=== PATIENT | male | born 1945 | race Caucasian/White ===

== ENCOUNTER 2018-01-13 13:58 | Outpatient (RCR) | payer OTHER, SELFPAY ==
[2018-01-13 14:40] VITALS: BP 123/52; PULSE 79; RESP 16; TEMP 36.5; BMI 33.2
--- NOTE | 2018-01-13 17:23 | PCM.WC.HP ---
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: without senior care use Code(s): E11.9 - Type 2 diabetes mellitus without complications (4) Hypertension Status: Chronic Current Visit: Yes Qualifiers: Hypertension type: essential hypertension Qualified Code(s): I10 - Essential (primary) hypertension Code(s): I10 - Essential (primary) hypertension (5) Atrial fibrillation Status: Chronic Current Visit: Yes Qualifiers: Atrial fibrillation type: chronic Qualified Code(s): I48.2 - Chronic atrial fibrillation Code(s): I48.91 - Unspecified atrial fibrillation (6) Chronic anticoagulation Status: Chronic Current Visit: Yes Code(s): Z79.01 - [facility] (current) use of anticoagulants History of Present Illness Date of Service: 01/13/18 Chief Complaint: nonhealing wound to left gray due to trauma/hematoma History of Wound: Enrique is a 72 yo male who is referred for treatment at the wound healing center by Dr. Comer for a nonhealing wound of his left gray due to trauma with resultant hematoma. Enrique injured his leg on December 23, 2017 when a piece of wood dropped and struck his lower leg and he subsequently developed a hematoma due to his chronic anticoagulation with coumadin for A. fib. The skin over the hematoma sloughed off after he put hand elementary math tutor over it and used a heating pad over it and subsequently the clot evacuated itself and he was left with an open wound. Since that time he was applying neosporin and gauze or using wet to dry dressings to the wound. He denies significant drainage, pain or erythema. INR on 01/02/18 was 3.1 Past Medical History Past Medical History: Chronic Problems Traumatic open wound of left lower leg (Chronic) Hyperlipidemia (Chronic) Diabetes mellitus type 2, controlled (Chronic) Hypertension (Chronic) Atrial fibrillation (Chronic) Chronic anticoagulation (Chronic) Surgical History: - - carpal tunnel release b/l, ethmoidectomy, right forearm tendon repair Allergies/Adverse Reactions: Allergies No Known Allergies Allergy (Verified 01/13/18 15:00) Home Medications: Ambulatory Orders Medication Instructions Recorded Acetaminophen [Tylenol Extra 1,000 mg PO DAILY 01/13/18 Strength] Diltiazem HCl [Diltiazem 24Hr ER] 360 mg PO DAILY 01/13/18 Ezetimibe [Zetia] 10 mg PO DAILY 01/13/18 Glimepiride [Amaryl] 2 mg PO DAILY 01/13/18 Ibuprofen [Motrin] 800 mg PO DAILY 01/13/18 Losartan Potassium [Cozaar] 100 mg PO DAILY 01/13/18 Metformin HCl 1,000 mg PO BID 01/13/18 Rosuvastatin Calcium [Crestor] 40 mg PO DAILY 01/13/18 Sitagliptin Phosphate [Januvia] 100 mg PO DAILY 01/13/18 Warfarin Sodium 3 mg PO DAILY 01/13/18 Warfarin Sodium [Coumadin] 1.5 mg PO DAILY 01/13/18 - Family History Maternal Heart Disease, Hypertension Paternal Diabetes, High Cholesterol, Heart Disease, Hypertension Sibling Hypertension Lives: Spouse/ Significant Other Smoking Status: Never smoker Tobacco Use: Non-smoker Alcohol: Occasional Drugs: None Review of Systems Constitutional: Denies: Chills, Fever, Weight Change Eyes: Denies: Pain, Vision Change HEENT: Denies: Difficulty Hearing, Difficulty Swallowing, Sinus Congestion Cardiovascular: Denies: Chest Pain, Palpitations Respiratory: Denies: Cough, Shortness of Breath Gastrointestinal: Denies: Diarrhea, Nausea, Vomiting Genitourinary: Denies: Dysuria, Hematuria Musculoskeletal: Reports: Joint Pain Skin: Reports: Wounds Endocrine: Denies: Heat/ Cold Intolerance, Polydipsia, Polyuria Hematologic/ Lymphatic: Denies: Easy Bruising, Easy Bleeding - Physical Exam Vital Signs Temp Pulse Resp BP 97.7 F L 79 16 123/52 H 01/13/18 14:40 01/13/18 14:40 01/13/18 14:40 01/13/18 14:40 General: Alert, Oriented x3, Cooperative, No apparent distress HEENT: Atraumatic, Normocephalic Oral: Moist Mucosa Lungs: Clear to auscultation Cardiovascular: Irregular Rate Abdomen: Soft, Non Tender, Obese Extremities: Edema Skin: Ulcer/ Wound Wound Measurements and Assessment WC - Nurse 1 - General Ulcer Measurement Start: 01/13/18 14:34 Freq: Status: Active Protocol: Activity Type Activity Date Activity User E-Sign Co-Sign Detail Recorded Client Recorded Date Recorded By Document 01/13/18 14:40 [facility] [id number] 01/13/18 14:57 [facility] 01/13/18 14:40 Wound Center Nurse 1 [Ulcer Assessment] #1- LEFT MEDIAL LE -Combined with other wound No -Current Size (cm) - Length 5.8 -Current Size (cm) - Width 4.6 -Current Size (cm) - Depth 0.3 -Total Square Cm 26.68 -Date of Last Picture (Recall this 01/13/18 field) -Photo Taken Yes -Epithelialization None Present -Tunneling No -Undermining/Tunneling No -Circular Undermining No -Exudate Amt Medium (34-66%) -Exudate Type Serosanguineous -Wound Margin Distinct, Outline Attached -Granulation Amt Medium (34-66%) -Granulation Quality Red -Slough/Fibrin Yes -Necrosis Amt Small (1-33%) -Necrotic Tissue Type Adherent Slough -Structure Exposed Fat Layer Exposed -Texture (Yessy-wound Skin Appearance) Scarring -Moisture (Yessy-wound Skin Appearance Assessed ) -Color (Yessy-wound Skin Appearance) Erythema -Temperature (Yessy-wound Skin No Abnormality Appearance) (Pt Warm) -Tenderness on Palpation (Yessy-wound No Skin Appearance) -Ulcer Cleansing Wound Cleanser -Foul Odor after Cleansing No -Anesthetic Used 4% Lidocaine Solution [Edema Assessment] -Lower Limb Edema Present Yes WC - Nurse 2 - General Ulcer CM Notes Start: 01/13/18 14:34 Freq: Status: Active Protocol: Activity Type Activity Date Activity User E-Sign Co-Sign Detail Recorded Client Recorded Date Recorded By Document 01/13/18 15:18 [id number] 01/13/18 15:47 01/13/18 15:18 Wound Center Nurse 2 [Procedure/Treatment] #2 LEFT GRAY -Time 15:44 -Correct Patient Yes -Correct Side, Site, Position Yes -Correct Procedure Yes -Procedure Performed Yes -Type of Procedure Debridement -Clinical Debridement Subcutaneous -Post Debridement Size (cm) - Length 0.7 -Post Debridement Size (cm) - Width 0.6 -Post Debridement Size (cm) - Depth 0.4 -Total Square Cm 0.42 -Wound/Ulcer Outcome Not Healed -Ulcer Cleansing Rinsed/ Irrigated with Saline -Foul Odor after Cleansing No -Bioengineered Tissue No -Topical Lidocaine (%) 5 -Bleeding Controlled with Pressure -Treatment Response Procedure Tolerated Well #1- LEFT MEDIAL LE -Time 15:18 -Correct Patient Yes -Correct Side, Site, Position Yes -Correct Procedure Yes -Procedure Performed Yes -Type of Procedure Debridement -Clinical Debridement Subcutaneous -Post Debridement Size (cm) - Length 5.7 -Post Debridement Size (cm) - Width 4.5 -Post Debridement Size (cm) - Depth 0.3 -Total Square Cm 25.65 -Wound/Ulcer Outcome Not Healed -Ulcer Cleansing Rinsed/ Irrigated with Saline -Foul Odor after Cleansing No -Bioengineered Tissue No -Topical Lidocaine (%) 5 -Bleeding Controlled with Pressure -Other CIRCULAR UNDERMINING 0.3 CM -Treatment Response Procedure Tolerated Well [See Physician Procedure note for Specifics] Pain Scale: 0-10 Numeric [Pain] -Is Patient Pain Free? Yes Psych/Mental Status: Normal Affect, Appropriate Debridement Note Post-Debridement Measurements/Treatment WC - Nurse 2 - General Ulcer CM Notes Start: 01/13/18 14:34 Freq: Status: Active Protocol: Activity Type Activity Date Activity User E-Sign Co-Sign Detail Recorded Client Recorded Date Recorded By Document 01/13/18 15:18 [id number] 01/13/18 15:47 01/13/18 15:18 Wound Center Nurse 2 #2 LEFT GRAY -Time 15:44 -Correct Patient Yes -Correct Side, Site, Position Yes -Correct Procedure Yes -Procedure Performed Yes -Type of Procedure Debridement -Clinical Debridement Subcutaneous -Post Debridement Size (cm) - Length 0.7 -Post Debridement Size (cm) - Width 0.6 -Post Debridement Size (cm) - Depth 0.4 -Total Square Cm 0.42 -Wound/Ulcer Outcome Not Healed -Ulcer Cleansing Rinsed/ Irrigated with Saline -Foul Odor after Cleansing No -Bioengineered Tissue No -Topical Lidocaine (%) 5 -Bleeding Controlled with Pressure -Treatment Response Procedure Tolerated Well #1- LEFT MEDIAL LE -Time 15:18 -Correct Patient Yes -Correct Side, Site, Position Yes -Correct Procedure Yes -Procedure Performed Yes -Type of Procedure Debridement -Clinical Debridement Subcutaneous -Post Debridement Size (cm) - Length 5.7 -Post Debridement Size (cm) - Width 4.5 -Post Debridement Size (cm) - Depth 0.3 -Total Square Cm 25.65 -Wound/Ulcer Outcome Not Healed -Ulcer Cleansing Rinsed/ Irrigated with Saline -Foul Odor after Cleansing No -Bioengineered Tissue No -Topical Lidocaine (%) 5 -Bleeding Controlled with Pressure -Other CIRCULAR UNDERMINING 0.3 CM -Treatment Response Procedure Tolerated Well Pain Scale: 0-10 Numeric Is Patient Pain Free? Yes Wound debrided: left medial LE Laterality: Left Type of Debridement: Excisional debridement Anesthesia Used: 4% Lidocaine Solution Depth: Down to and including healthy tissue, in the subcutaneous layer Percentage of wound debrided: 100 Instrument Used: 5mm curette Tissue Removed: yellow slough, devitalized tissue Severity: Fat Layer Exposed Amount of bleeding with debridement: Mild Bleeding Controlled with: Compression and gauze Patient tolerated procedure well - Additional Wound Wound debrided: left gray Laterality: Left Type of Debridement: Excisional debridement Anesthesia Used: 4% Lidocaine Solution Depth: Down to and including healthy tissue, in the subcutaneous layer Percentage of wound debrided: 100 Instrument Used: 5mm curette Tissue Removed: yellow slough, devitalized tissue Severity: Fat Layer Exposed Amount of bleeding with debridement: Mild Bleeding Controlled with: Compression and gauze Patient tolerated procedure: Patient tolerated procedure well Assessment/Plan Active Problems Traumatic open wound of left lower leg (Chronic) Hyperlipidemia (Chronic) Diabetes mellitus type 2, controlled (Chronic) Hypertension (Chronic) Atrial fibrillation (Chronic) Chronic anticoagulation (Chronic) Assessment: nonhealing wounds to left gray due to trauma Plan: Enrique's wounds were evaluated and debrided today. Will have him use Aquacel Ag as a primary dressing with adaptic and gauze. Will have him use tubigrips for compression. If there is not significant improvement in the next 2 weeks would obtain vascular testing to assess for compromised vascular system. Puraply was applied for to be used on his wounds to facilitate healing due to the depth and slough and bioburden present in the wound. He ultimately may also benefit from treatment with an Apligraf if his healing is stalled. Encouraged tight glucose control. Elevation of his legs when possible. Increased protein intake to promote healing. F/U in 1 week.
--- NOTE | 2018-01-13 17:27 | HP.PCM_ITS ---
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 penitentiary use Code(s): E11.9 - Type 2 diabetes mellitus without complications (4) Hypertension Status: Chronic Current Visit: Yes Qualifiers: Hypertension type: essential hypertension Qualified Code(s): I10 - Essential (primary) hypertension Code(s): I10 - Essential (primary) hypertension (5) Atrial fibrillation Status: Chronic Current Visit: Yes Qualifiers: Atrial fibrillation type: chronic Qualified Code(s): I48.2 - Chronic atrial fibrillation Code(s): I48.91 - Unspecified atrial fibrillation (6) Chronic anticoagulation Status: Chronic Current Visit: Yes Code(s): 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 Comer for a nonhealing wound of his left gray due to trauma with resultant hematoma. Enrique injured his leg on December 23, 2017 when a piece of wood dropped and struck his lower leg and he subsequently developed a hematoma due to his chronic anticoagulation with coumadin for A. fib. The skin over the hematoma sloughed off after he put hand routing equipment tender over it and used a heating pad over it and subsequently the clot evacuated itself and he was left with an open wound. Since that time he was applying neosporin and gauze or using wet to dry dressings to the wound. He denies significant drainage, pain or erythema. INR on 01/02/18 was 3.1 Past Medical History Past Medical History: Chronic Problems Traumatic open wound of left lower leg (Chronic) Hyperlipidemia (Chronic) Diabetes mellitus type 2, controlled (Chronic) Hypertension (Chronic) Atrial fibrillation (Chronic) Chronic anticoagulation (Chronic) Surgical History: - - carpal tunnel release b/l, ethmoidectomy, right forearm tendon repair Allergies/Adverse Reactions: Allergies No Known Allergies Allergy (Verified 01/13/18 15:00) Home Medications: Ambulatory Orders Medication Instructions Recorded Acetaminophen [Tylenol Extra 1,000 mg PO DAILY 01/13/18 Strength] Diltiazem HCl [Diltiazem 24Hr ER] 360 mg PO DAILY 01/13/18 Ezetimibe [Zetia] 10 mg PO DAILY 01/13/18 Glimepiride [Amaryl] 2 mg PO DAILY 01/13/18 Ibuprofen [Motrin] 800 mg PO DAILY 01/13/18 Losartan Potassium [Cozaar] 100 mg PO DAILY 01/13/18 Metformin HCl 1,000 mg PO BID 01/13/18 Rosuvastatin Calcium [Crestor] 40 mg PO DAILY 01/13/18 Sitagliptin Phosphate [Januvia] 100 mg PO DAILY 01/13/18 Warfarin Sodium 3 mg PO DAILY 01/13/18 Warfarin Sodium [Coumadin] 1.5 mg PO DAILY 01/13/18 - Family History Maternal Heart Disease, Hypertension Paternal Diabetes, High Cholesterol, Heart Disease, Hypertension Sibling Hypertension Lives: Spouse/ Significant Other Smoking Status: Never smoker Tobacco Use: Non-smoker Alcohol: Occasional Drugs: None Review of Systems Constitutional: Denies: Chills, Fever, Weight Change Eyes: Denies: Pain, Vision Change HEENT: Denies: Difficulty Hearing, Difficulty Swallowing, Sinus Congestion Cardiovascular: Denies: Chest Pain, Palpitations Respiratory: Denies: Cough, Shortness of Breath Gastrointestinal: Denies: Diarrhea, Nausea, Vomiting Genitourinary: Denies: Dysuria, Hematuria Musculoskeletal: Reports: Joint Pain Skin: Reports: Wounds Endocrine: Denies: Heat/ Cold Intolerance, Polydipsia, Polyuria Hematologic/ Lymphatic: Denies: Easy Bruising, Easy Bleeding - Physical Exam Vital Signs Temp Pulse Resp BP 97.7 F L 79 16 123/52 H 01/13/18 14:40 01/13/18 14:40 01/13/18 14:40 01/13/18 14:40 General: Alert, Oriented x3, Cooperative, No apparent distress HEENT: Atraumatic, Normocephalic Oral: Moist Mucosa Lungs: Clear to auscultation Cardiovascular: Irregular Rate Abdomen: Soft, Non Tender, Obese Extremities: Edema Skin: Ulcer/ Wound Wound Measurements and Assessment WC - Nurse 1 - General Ulcer Measurement Start: 01/13/18 14:34 Freq: Status: Active Protocol: Activity Type Activity Date Activity User E-Sign Co-Sign Detail Recorded Client Recorded Date Recorded By Document 01/13/18 14:40 [facility] [id number] 01/13/18 14:57 [facility] 01/13/18 14:40 Wound Center Nurse 1 [Ulcer Assessment] #1- LEFT MEDIAL LE -Combined with other wound No -Current Size (cm) - Length 5.8 -Current Size (cm) - Width 4.6 -Current Size (cm) - Depth 0.3 -Total Square Cm 26.68 -Date of Last Picture (Recall this 01/13/18 field) -Photo Taken Yes -Epithelialization None Present -Tunneling No -Undermining/Tunneling No -Circular Undermining No -Exudate Amt Medium (34-66%) -Exudate Type Serosanguineous -Wound Margin Distinct, Outline Attached -Granulation Amt Medium (34-66%) -Granulation Quality Red -Slough/Fibrin Yes -Necrosis Amt Small (1-33%) -Necrotic Tissue Type Adherent Slough -Structure Exposed Fat Layer Exposed -Texture (Yessy-wound Skin Appearance) Scarring -Moisture (Yessy-wound Skin Appearance Assessed ) -Color (Yessy-wound Skin Appearance) Erythema -Temperature (Yessy-wound Skin No Abnormality Appearance) (Pt Warm) -Tenderness on Palpation (Yessy-wound No Skin Appearance) -Ulcer Cleansing Wound Cleanser -Foul Odor after Cleansing No -Anesthetic Used 4% Lidocaine Solution [Edema Assessment] -Lower Limb Edema Present Yes WC - Nurse 2 - General Ulcer CM Notes Start: 01/13/18 14:34 Freq: Status: Active Protocol: Activity Type Activity Date Activity User E-Sign Co-Sign Detail Recorded Client Recorded Date Recorded By Document 01/13/18 15:18 [id number] 01/13/18 15:47 01/13/18 15:18 Wound Center Nurse 2 [Procedure/Treatment] #2 LEFT GRAY -Time 15:44 -Correct Patient Yes -Correct Side, Site, Position Yes -Correct Procedure Yes -Procedure Performed Yes -Type of Procedure Debridement -Clinical Debridement Subcutaneous -Post Debridement Size (cm) - Length 0.7 -Post Debridement Size (cm) - Width 0.6 -Post Debridement Size (cm) - Depth 0.4 -Total Square Cm 0.42 -Wound/Ulcer Outcome Not Healed -Ulcer Cleansing Rinsed/ Irrigated with Saline -Foul Odor after Cleansing No -Bioengineered Tissue No -Topical Lidocaine (%) 5 -Bleeding Controlled with Pressure -Treatment Response Procedure Tolerated Well #1- LEFT MEDIAL LE -Time 15:18 -Correct Patient Yes -Correct Side, Site, Position Yes -Correct Procedure Yes -Procedure Performed Yes -Type of Procedure Debridement -Clinical Debridement Subcutaneous -Post Debridement Size (cm) - Length 5.7 -Post Debridement Size (cm) - Width 4.5 -Post Debridement Size (cm) - Depth 0.3 -Total Square Cm 25.65 -Wound/Ulcer Outcome Not Healed -Ulcer Cleansing Rinsed/ Irrigated with Saline -Foul Odor after Cleansing No -Bioengineered Tissue No -Topical Lidocaine (%) 5 -Bleeding Controlled with Pressure -Other CIRCULAR UNDERMINING 0.3 CM -Treatment Response Procedure Tolerated Well [See Physician Procedure note for Specifics] Pain Scale: 0-10 Numeric [Pain] -Is Patient Pain Free? Yes Psych/Mental Status: Normal Affect, Appropriate Debridement Note Post-Debridement Measurements/Treatment WC - Nurse 2 - General Ulcer CM Notes Start: 01/13/18 14:34 Freq: Status: Active Protocol: Activity Type Activity Date Activity User E-Sign Co-Sign Detail Recorded Client Recorded Date Recorded By Document 01/13/18 15:18 [id number] 01/13/18 15:47 01/13/18 15:18 Wound Center Nurse 2 #2 LEFT GRAY -Time 15:44 -Correct Patient Yes -Correct Side, Site, Position Yes -Correct Procedure Yes -Procedure Performed Yes -Type of Procedure Debridement -Clinical Debridement Subcutaneous -Post Debridement Size (cm) - Length 0.7 -Post Debridement Size (cm) - Width 0.6 -Post Debridement Size (cm) - Depth 0.4 -Total Square Cm 0.42 -Wound/Ulcer Outcome Not Healed -Ulcer Cleansing Rinsed/ Irrigated with Saline -Foul Odor after Cleansing No -Bioengineered Tissue No -Topical Lidocaine (%) 5 -Bleeding Controlled with Pressure -Treatment Response Procedure Tolerated Well #1- LEFT MEDIAL LE -Time 15:18 -Correct Patient Yes -Correct Side, Site, Position Yes -Correct Procedure Yes -Procedure Performed Yes -Type of Procedure Debridement -Clinical Debridement Subcutaneous -Post Debridement Size (cm) - Length 5.7 -Post Debridement Size (cm) - Width 4.5 -Post Debridement Size (cm) - Depth 0.3 -Total Square Cm 25.65 -Wound/Ulcer Outcome Not Healed -Ulcer Cleansing Rinsed/ Irrigated with Saline -Foul Odor after Cleansing No -Bioengineered Tissue No -Topical Lidocaine (%) 5 -Bleeding Controlled with Pressure -Other CIRCULAR UNDERMINING 0.3 CM -Treatment Response Procedure Tolerated Well Pain Scale: 0-10 Numeric Is Patient Pain Free? Yes Wound debrided: left medial LE Laterality: Left Type of Debridement: Excisional debridement Anesthesia Used: 4% Lidocaine Solution Depth: Down to and including healthy tissue, in the subcutaneous layer Percentage of wound debrided: 100 Instrument Used: 5mm curette Tissue Removed: yellow slough, devitalized tissue Severity: Fat Layer Exposed Amount of bleeding with debridement: Mild Bleeding Controlled with: Compression and gauze Patient tolerated procedure well - Additional Wound Wound debrided: left gray Laterality: Left Type of Debridement: Excisional debridement Anesthesia Used: 4% Lidocaine Solution Depth: Down to and including healthy tissue, in the subcutaneous layer Percentage of wound debrided: 100 Instrument Used: 5mm curette Tissue Removed: yellow slough, devitalized tissue Severity: Fat Layer Exposed Amount of bleeding with debridement: Mild Bleeding Controlled with: Compression and gauze Patient tolerated procedure: Patient tolerated procedure well Assessment/Plan Active Problems Traumatic open wound of left lower leg (Chronic) Hyperlipidemia (Chronic) Diabetes mellitus type 2, controlled (Chronic) Hypertension (Chronic) Atrial fibrillation (Chronic) Chronic anticoagulation (Chronic) Assessment: nonhealing wounds to left gray due to trauma
== END 2018-01-13 23:59 ==
LOC: WC 13:58
PROVIDERS: PCP Family Medicine; Visit Provider Family Medicine
DX: S80.12XA Contusion of left lower leg, initial encounter (principal); W22.8XXA Striking against or struck by other objects, initial encounter; I10 Essential (primary) hypertension; I48.2 Chronic atrial fibrillation; Z79.01 Long term (current) use of anticoagulants; E11.9 Type 2 diabetes mellitus without complications; E78.5 Hyperlipidemia, unspecified; Z79.899 Other long term (current) drug therapy
CPT/HCPCS: 11042; 11045; 99203; G0463

== ENCOUNTER 2018-02-10 13:30 | Outpatient (RCR) | payer OTHER, SELFPAY ==
[2018-01-14 02:00] VITALS: BP 123/52; PULSE 79; RESP 16; TEMP 36.5
[2018-01-20 14:08] VITALS: BP 124/68; PULSE 79; RESP 18; TEMP 36.6
--- NOTE | 2018-01-20 17:57 | PCM.WC.PN ---
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 Comer for a nonhealing wound of his left gray due to trauma with resultant hematoma. Enrique injured his leg on December 23, 2017 when a piece of wood dropped and struck his lower leg and he subsequently developed a hematoma due to his chronic anticoagulation with coumadin for A. fib. The skin over the hematoma sloughed off after he put hand beam press operator over it and used a heating pad over it and subsequently the clot evacuated itself and he was left with an open wound. Since that time he was applying neosporin and gauze or using wet to dry dressings to the wound. He denies significant drainage, pain or erythema. INR on 01/02/18 was 3.1 Progress of Wound: Enrique returns for follow up of his nonhealing traumatic wound to his left gray. He tolerated dressings and does note some drainage from wound and occasionally some pain. Denies odor or erythema increase. He has been tolerating tubigrip compression. Puraply application is pending. - Physical Exam Vital Signs Temp Pulse Resp BP 98 F 79 18 124/68 H 01/20/18 14:08 01/20/18 14:08 01/20/18 14:08 01/20/18 14:08 General: Alert, Oriented x3, Cooperative, No apparent distress HEENT: Atraumatic, Normocephalic Oral: Moist Mucosa Abdomen: Obese Extremities: Edema Skin: Ulcer/ Wound Wound Measurements and Assessment WC - Nurse 1 - General Ulcer Measurement Start: 01/20/18 14:08 Freq: Status: Active Protocol: Activity Type Activity Date Activity User E-Sign Co-Sign Detail Recorded Client Recorded Date Recorded By Document 01/20/18 14:08 [facility] [id number] 01/20/18 14:19 [facility] 01/20/18 14:08 Wound Center Nurse 1 [Ulcer Assessment] #2 LEFT GRAY -Combined with other wound No -Current Size (cm) - Length 0.6 -Current Size (cm) - Width 0.2 -Current Size (cm) - Depth 0.3 -Total Square Cm 0.12 -Photo Taken No -Epithelialization None Present -Tunneling No -Undermining/Tunneling No -Circular Undermining No -Exudate Amt Small (1-33%) -Exudate Type Serosanguineous -Wound Margin Distinct, Outline Attached -Granulation Amt Small (1-33%) -Granulation Quality Red -Slough/Fibrin Yes -Necrosis Amt Large (67-100%) -Necrotic Tissue Type Adherent Slough -Texture (Yessy-wound Skin Appearance) Scarring -Moisture (Yessy-wound Skin Appearance Dry/Scaly ) -Color (Yessy-wound Skin Appearance) Assessed Erythema -Temperature (Yessy-wound Skin No Abnormality Appearance) (Pt Warm) -Tenderness on Palpation (Yessy-wound No Skin Appearance) -Ulcer Cleansing Rinsed/ Irrigated with Saline -Foul Odor after Cleansing No -Anesthetic Used 5% Lidocaine Gel #1- LEFT MEDIAL LE -Combined with other wound No -Current Size (cm) - Length 5.4 -Current Size (cm) - Width 4.1 -Current Size (cm) - Depth 0.2 -Total Square Cm 22.14 -Photo Taken No -Epithelialization None Present -Tunneling No -Undermining/Tunneling No -Circular Undermining No -Exudate Amt Medium (34-66%) -Exudate Type Serosanguineous -Wound Margin Distinct, Outline Attached -Granulation Amt Small (1-33%) -Granulation Quality Red -Slough/Fibrin Yes -Necrosis Amt Large (67-100%) -Necrotic Tissue Type Adherent Slough -Texture (Yessy-wound Skin Appearance) Scarring -Moisture (Yessy-wound Skin Appearance Dry/Scaly ) -Color (Yessy-wound Skin Appearance) Erythema -Temperature (Yessy-wound Skin No Abnormality Appearance) (Pt Warm) -Tenderness on Palpation (Yessy-wound No Skin Appearance) -Ulcer Cleansing Rinsed/ Irrigated with Saline -Foul Odor after Cleansing No -Anesthetic Used 5% Lidocaine Gel [Edema Assessment] -Lower Limb Edema Present Yes -Left Calf (cm) 34.4 -Left Ankle (cm) 22 HANSA - Nurse 2 - General Ulcer CM Notes Start: 01/20/18 14:08 Freq: Status: Active Protocol: Activity Type Activity Date Activity User E-Sign Co-Sign Detail Recorded Client Recorded Date Recorded By Document 01/20/18 15:27 [id number] 01/20/18 15:31 TM 01/20/18 15:27 Wound Center Nurse 2 [Procedure/Treatment] #2 LEFT GRAY -Time 15:27 -Correct Patient Yes -Correct Side, Site, Position Yes -Correct Procedure Yes -Procedure Performed Yes -Type of Procedure Debridement -Clinical Debridement Subcutaneous -Post Debridement Size (cm) - Length 0.8 -Post Debridement Size (cm) - Width 0.4 -Post Debridement Size (cm) - Depth 0.3 -Total Square Cm 0.32 -Wound/Ulcer Outcome Not Healed -Ulcer Cleansing Rinsed/ Irrigated with Saline -Foul Odor after Cleansing No -Bioengineered Tissue No -Topical Lidocaine (%) 5 -Bleeding Controlled with Pressure -Treatment Response Procedure Tolerated Well #1- LEFT MEDIAL LE -Time 15:28 -Correct Patient Yes -Correct Side, Site, Position Yes -Correct Procedure Yes -Procedure Performed Yes -Type of Procedure Debridement -Clinical Debridement Subcutaneous -Post Debridement Size (cm) - Length 5.5 -Post Debridement Size (cm) - Width 4.3 -Post Debridement Size (cm) - Depth 0.2 -Total Square Cm 23.65 -Wound/Ulcer Outcome Not Healed -Ulcer Cleansing Rinsed/ Irrigated with Saline -Foul Odor after Cleansing No -Bioengineered Tissue No -Topical Lidocaine (%) 5 -Bleeding Controlled with Pressure -Other CIRCULAR UNDERMING 0.3CM -Treatment Response Procedure Tolerated Well [See Physician Procedure note for Specifics] Pain Scale: 0-10 Numeric [Pain] -Is Patient Pain Free? Yes Psych/Mental Status: Normal Affect, Appropriate Debridement Note Post-Debridement Measurements/Treatment HANSA - Nurse 2 - General Ulcer CM Notes Start: 01/20/18 14:08 Freq: Status: Active Protocol: Activity Type Activity Date Activity User E-Sign Co-Sign Detail Recorded Client Recorded Date Recorded By Document 01/20/18 15:27 [id number] 01/20/18 15:31 01/20/18 15:27 Wound Center Nurse 2 #2 LEFT GRAY -Time 15:27 -Correct Patient Yes -Correct Side, Site, Position Yes -Correct Procedure Yes -Procedure Performed Yes -Type of Procedure Debridement -Clinical Debridement Subcutaneous -Post Debridement Size (cm) - Length 0.8 -Post Debridement Size (cm) - Width 0.4 -Post Debridement Size (cm) - Depth 0.3 -Total Square Cm 0.32 -Wound/Ulcer Outcome Not Healed -Ulcer Cleansing Rinsed/ Irrigated with Saline -Foul Odor after Cleansing No -Bioengineered Tissue No -Topical Lidocaine (%) 5 -Bleeding Controlled with Pressure -Treatment Response Procedure Tolerated Well #1- LEFT MEDIAL LE -Time 15:28 -Correct Patient Yes -Correct Side, Site, Position Yes -Correct Procedure Yes -Procedure Performed Yes -Type of Procedure Debridement -Clinical Debridement Subcutaneous -Post Debridement Size (cm) - Length 5.5 -Post Debridement Size (cm) - Width 4.3 -Post Debridement Size (cm) - Depth 0.2 -Total Square Cm 23.65 -Wound/Ulcer Outcome Not Healed -Ulcer Cleansing Rinsed/ Irrigated with Saline -Foul Odor after Cleansing No -Bioengineered Tissue No -Topical Lidocaine (%) 5 -Bleeding Controlled with Pressure -Other CIRCULAR UNDERMING 0.3CM -Treatment Response Procedure Tolerated Well Pain Scale: 0-10 Numeric Is Patient Pain Free? Yes Wound debrided: left gray Laterality: Left Type of Debridement: Excisional debridement Anesthesia Used: 5% Lidocaine Gel Depth: Down to and including healthy tissue, in the subcutaneous layer Percentage of wound debrided: 100 Instrument Used: 5mm curette Tissue Removed: yellow slough, devitalized tissue Severity: Fat Layer Exposed Amount of bleeding with debridement: Mild Bleeding Controlled with: Compression and gauze Patient tolerated procedure well - Additional Wound Wound debrided: left medial LE Laterality: Left Type of Debridement: Excisional debridement Anesthesia Used: 5% Lidocaine Gel Depth: Down to and including healthy tissue, in the subcutaneous layer Percentage of wound debrided: 100 Instrument Used: 5mm curette Tissue Removed: yellow slough, devitalized tissue Severity: Fat Layer Exposed Amount of bleeding with debridement: Mild Bleeding Controlled with: Compression and gauze Patient tolerated procedure: Patient tolerated procedure well Assessment/Plan Active Problems Traumatic open wound of left lower leg (Chronic) Hyperlipidemia (Chronic) Diabetes mellitus type 2, controlled (Chronic) Chronic anticoagulation (Chronic) Assessment: nonhealing wounds to left gray due to trauma Plan: Enrique's wounds were evaluated and debrided today. Will have him continue to use Aquacel Ag as a primary dressing with adaptic and gauze. Will have him use tubigrip for compression. If there is not significant improvement in the next 2 weeks would obtain vascular testing to assess for compromised vascular system. Puraply was applied for to be used on his wounds to facilitate healing due to the depth and slough and bioburden present in the wound. He ultimately may also benefit from treatment with an Apligraf if his healing is stalled. Encouraged tight glucose control. Elevation of his legs when possible. Increased protein intake to promote healing. F/U in 1 week.
[2018-01-27 14:41] VITALS: BP 128/87; PULSE 84; RESP 16; TEMP 36
--- NOTE | 2018-01-27 19:15 | PCM.WC.PN ---
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 Comer for a nonhealing wound of his left gray due to trauma with resultant hematoma. Enrique injured his leg on December 23, 2017 when a piece of wood dropped and struck his lower leg and he subsequently developed a hematoma due to his chronic anticoagulation with coumadin for A. fib. The skin over the hematoma sloughed off after he put hand jacquard twine polisher operator over it and used a heating pad over it and subsequently the clot evacuated itself and he was left with an open wound. Since that time he was applying neosporin and gauze or using wet to dry dressings to the wound. He denies significant drainage, pain or erythema. INR on 01/02/18 was 3.1 Progress of Wound: Enrique returns for follow up of his nonhealing traumatic wound to his left gray. He tolerated dressings and does note some drainage from wound and occasionally some pain but improving. Denies odor or erythema increase. He has been tolerating tubigrip compression. Puraply application was denied. - Physical Exam Vital Signs Temp Pulse Resp BP 96.8 F L 84 16 128/87 H 01/27/18 14:41 01/27/18 14:41 01/27/18 14:41 01/27/18 14:41 General: Alert, Oriented x3, Cooperative, No apparent distress HEENT: Atraumatic, Normocephalic Oral: Moist Mucosa Abdomen: Obese Extremities: Edema Skin: Ulcer/ Wound Wound Measurements and Assessment WC - Nurse 1 - General Ulcer Measurement Start: 01/20/18 14:08 Freq: Status: Active Protocol: Activity Type Activity Date Activity User E-Sign Co-Sign Detail Recorded Client Recorded Date Recorded By Document 01/27/18 14:41 [id number] 01/27/18 14:44 01/27/18 14:41 Wound Center Nurse 1 [Ulcer Assessment] #2 LEFT GRAY -Current Size (cm) - Length 0.6 -Current Size (cm) - Width 0.3 -Current Size (cm) - Depth 0.1 -Total Square Cm 0.18 -Photo Taken No -Epithelialization Medium 34-66% -Tunneling No -Undermining/Tunneling No -Circular Undermining No -Exudate Amt Small (1-33%) -Exudate Type Serosanguineous -Wound Margin Distinct, Outline Attached -Granulation Amt Medium (34-66%) -Granulation Quality Pale [place] -Slough/Fibrin Yes -Necrosis Amt None Present (0 %) -Necrotic Tissue Type Adherent Slough -Structure Exposed None/Limited to Skin Breakdown -Texture (Yessy-wound Skin Appearance) No Abnormality -Moisture (Yessy-wound Skin Appearance No Abnormality ) Assessed -Color (Yessy-wound Skin Appearance) No Abnormality Assessed -Temperature (Yessy-wound Skin No Abnormality Appearance) (Pt Warm) -Tenderness on Palpation (Yessy-wound No Skin Appearance) -Ulcer Cleansing Rinsed/ Irrigated with Saline -Foul Odor after Cleansing No -Anesthetic Used 4% Lidocaine Solution #1- LEFT MEDIAL LE -Combined with other wound No -Current Size (cm) - Length 5.5 -Current Size (cm) - Width 3.8 -Current Size (cm) - Depth 0.1 -Total Square Cm 20.90 -Photo Taken No -Epithelialization None Present -Tunneling No -Undermining/Tunneling No -Circular Undermining No -Exudate Amt Medium (34-66%) -Exudate Type Serosanguineous -Wound Margin Distinct, Outline Attached -Granulation Amt Medium (34-66%) -Granulation Quality Pale [place] -Slough/Fibrin Yes -Necrosis Amt None Present (0 %) -Necrotic Tissue Type Adherent Slough -Structure Exposed None/Limited to Skin Breakdown -Texture (Yessy-wound Skin Appearance) No Abnormality Assessed -Moisture (Yessy-wound Skin Appearance No Abnormality ) Assessed -Color (Yessy-wound Skin Appearance) No Abnormality Assessed -Temperature (Yessy-wound Skin No Abnormality Appearance) (Pt Warm) -Tenderness on Palpation (Yessy-wound Yes Skin Appearance) -Ulcer Cleansing Rinsed/ Irrigated with Saline -Foul Odor after Cleansing No -Anesthetic Used 4% Lidocaine Solution [Edema Assessment] -Lower Limb Edema Present No -Left Calf (cm) 35 -Left Ankle (cm) 21 WC - Nurse 2 - General Ulcer CM Notes Start: 01/20/18 14:08 Freq: Status: Active Protocol: Activity Type Activity Date Activity User E-Sign Co-Sign Detail Recorded Client Recorded Date Recorded By Document 01/27/18 15:57 [id number] 01/27/18 15:58 01/27/18 15:57 Wound Center Nurse 2 [Procedure/Treatment] #2 LEFT GRAY -Time 15:57 -Correct Patient Yes -Correct Side, Site, Position Yes -Correct Procedure Yes -Procedure Performed Yes -Type of Procedure Debridement -Clinical Debridement Subcutaneous -Post Debridement Size (cm) - Length 0.5 -Post Debridement Size (cm) - Width 0.3 -Post Debridement Size (cm) - Depth 0.2 -Total Square Cm 0.15 -Wound/Ulcer Outcome Not Healed -Ulcer Cleansing Rinsed/ Irrigated with Saline -Foul Odor after Cleansing No -Bioengineered Tissue No -Topical Lidocaine (%) 4 -Bleeding Controlled with Pressure -Treatment Response Procedure Tolerated Well #1- LEFT MEDIAL LE -Time 15:57 -Correct Patient Yes -Correct Side, Site, Position Yes -Correct Procedure Yes -Procedure Performed Yes -Type of Procedure Debridement -Clinical Debridement Subcutaneous -Post Debridement Size (cm) - Length 5.4 -Post Debridement Size (cm) - Width 4.0 -Post Debridement Size (cm) - Depth 0.2 -Total Square Cm 21.60 -Wound/Ulcer Outcome Not Healed -Ulcer Cleansing Rinsed/ Irrigated with Saline -Foul Odor after Cleansing No -Bioengineered Tissue No -Topical Lidocaine (%) 4 -Bleeding Controlled with Pressure -Treatment Response Procedure Tolerated Well [See Physician Procedure note for Specifics] Pain Scale: 0-10 Numeric [Pain] -Is Patient Pain Free? Yes Psych/Mental Status: Normal Affect, Appropriate Debridement Note Post-Debridement Measurements/Treatment WC - Nurse 2 - General Ulcer CM Notes Start: 01/20/18 14:08 Freq: Status: Active Protocol: Activity Type Activity Date Activity User E-Sign Co-Sign Detail Recorded Client Recorded Date Recorded By Document 01/20/18 15:27 [id number] 01/20/18 15:31 Document 01/27/18 15:57 [id number] 01/27/18 15:58 TM 01/20/18 01/27/18 15:27 15:57 Wound Center Nurse 2 #2 LEFT GRAY -Time 15:27 15:57 -Correct Patient Yes Yes -Correct Side, Site, Position Yes Yes -Correct Procedure Yes Yes -Procedure Performed Yes Yes -Type of Procedure Debridement Debridement -Clinical Debridement Subcutaneous Subcutaneous -Post Debridement Size (cm) - Length 0.8 0.5 -Post Debridement Size (cm) - Width 0.4 0.3 -Post Debridement Size (cm) - Depth 0.3 0.2 -Total Square Cm 0.32 0.15 -Wound/Ulcer Outcome Not Healed Not Healed -Ulcer Cleansing Rinsed/ Rinsed/ Irrigated with Irrigated with Saline Saline -Foul Odor after Cleansing No No -Bioengineered Tissue No No -Topical Lidocaine (%) 5 4 -Bleeding Controlled with Pressure Pressure -Treatment Response Procedure Procedure Tolerated Well Tolerated Well #1- LEFT MEDIAL LE -Time 15:28 15:57 -Correct Patient Yes Yes -Correct Side, Site, Position Yes Yes -Correct Procedure Yes Yes -Procedure Performed Yes Yes -Type of Procedure Debridement Debridement -Clinical Debridement Subcutaneous Subcutaneous -Post Debridement Size (cm) - Length 5.5 5.4 -Post Debridement Size (cm) - Width 4.3 4.0 -Post Debridement Size (cm) - Depth 0.2 0.2 -Total Square Cm 23.65 21.60 -Wound/Ulcer Outcome Not Healed Not Healed -Ulcer Cleansing Rinsed/ Rinsed/ Irrigated with Irrigated with Saline Saline -Foul Odor after Cleansing No No -Bioengineered Tissue No No -Topical Lidocaine (%) 5 4 -Bleeding Controlled with Pressure Pressure -Other CIRCULAR UNDERMING 0.3CM -Treatment Response Procedure Procedure Tolerated Well Tolerated Well Pain Scale: 0-10 Numeric Is Patient Pain Free? Yes Yes Wound debrided: left gray Laterality: Left Type of Debridement: Excisional debridement Anesthesia Used: 4% Lidocaine Solution Depth: Down to and including healthy tissue, in the subcutaneous layer Percentage of wound debrided: 100 Instrument Used: 5mm curette Tissue Removed: yellow slough, devitalized tissue Severity: Fat Layer Exposed Amount of bleeding with debridement: Mild Bleeding Controlled with: Compression and gauze Patient tolerated procedure well - Additional Wound Wound debrided: left medial LE Laterality: Left Type of Debridement: Excisional debridement Anesthesia Used: 4% Lidocaine Solution Depth: Down to and including healthy tissue, in the subcutaneous layer Percentage of wound debrided: 100 Instrument Used: 5mm curette Tissue Removed: yellow slough, devitalized tissue Severity: Fat Layer Exposed Amount of bleeding with debridement: Mild Bleeding Controlled with: Compression and gauze Patient tolerated procedure: Patient tolerated procedure well Assessment/Plan Active Problems Traumatic open wound of left lower leg (Chronic) Hyperlipidemia (Chronic) Diabetes mellitus type 2, controlled (Chronic) Chronic anticoagulation (Chronic) Assessment: nonhealing wounds to left gray due to trauma Plan: Enrique's wounds were evaluated and debrided today. Will have him continue to use Aquacel Ag as a primary dressing with adaptic and gauze. Will have him use tubigrip for compression. If there is not significant improvement in the next 2 weeks would obtain vascular testing to assess for compromised vascular system. Puraply was denied. He ultimately may also benefit from treatment with an Apligraf if his healing is stalled. Encouraged tight glucose control. Elevation of his legs when possible. Increased protein intake to promote healing. F/U in 2 weeks.
--- NOTE | 2018-01-27 19:19 | PN.PCM_ITS ---
(1) Traumatic open wound of left lower leg Status: Chronic Current Visit: Yes Qualifiers: Encounter type: subsequent encounter Qualified Code(s): S81.802D - Unspecified open wound, left lower leg, subsequent encounter Code(s): S81.802A - Unspecified open wound, left lower leg, initial encounter (2) Hyperlipidemia Status: Chronic Current Visit: Yes Qualifiers: Hyperlipidemia type: unspecified Code(s): E78.5 - Hyperlipidemia, unspecified (3) Diabetes mellitus type 2, controlled Status: Chronic Current Visit: Yes Qualifiers: Diabetes mellitus fpc insulin use: unspecified eyeglass frame truer insulin use status Code(s): E11.9 - Type 2 diabetes mellitus without complications (4) Chronic anticoagulation Status: Chronic Current Visit: Yes Code(s): Z79.01 - intermediate (current) use of anticoagulants Type of Wound Date of Service: 01/27/18 Chief Complaint: nonhealing wound to left gray due to trauma/hematoma History of Wound: Enrique is a 72 yo male who is referred for treatment at the wound healing center by Dr. Comer for a nonhealing wound of his left gray due to trauma with resultant hematoma. Enrique injured his leg on December 23, 2017 when a piece of wood dropped and struck his lower leg and he subsequently developed a hematoma due to his chronic anticoagulation with coumadin for A. fib. The skin over the hematoma sloughed off after he put hand speech assistant over it and used a heating pad over it and subsequently the clot evacuated itself and he was left with an open wound. Since that time he was applying neosporin and gauze or using wet to dry dressings to the wound. He denies significant drainage, pain or erythema. INR on 01/02/18 was 3.1 Progress of Wound: Enrique returns for follow up of his nonhealing traumatic wound to his left gray. He tolerated dressings and does note some drainage from wound and occasionally some pain but improving. Denies odor or erythema increase. He has been tolerating tubigrip compression. Puraply application was denied. - Physical Exam Vital Signs Temp Pulse Resp BP 96.8 F L 84 16 128/87 H 01/27/18 14:41 01/27/18 14:41 01/27/18 14:41 01/27/18 14:41 General: Alert, Oriented x3, Cooperative, No apparent distress HEENT: Atraumatic, Normocephalic Oral: Moist Mucosa Abdomen: Obese Extremities: Edema Skin: Ulcer/ Wound Wound Measurements and Assessment WC - Nurse 1 - General Ulcer Measurement Start: 01/20/18 14:08 Freq: Status: Active Protocol: Activity Type Activity Date Activity User E-Sign Co-Sign Detail Recorded Client Recorded Date Recorded By Document 01/27/18 14:41 [id number] 01/27/18 14:44 01/27/18 14:41 Wound Center Nurse 1 [Ulcer Assessment] #2 LEFT GRAY -Current Size (cm) - Length 0.6 -Current Size (cm) - Width 0.3 -Current Size (cm) - Depth 0.1 -Total Square Cm 0.18 -Photo Taken No -Epithelialization Medium 34-66% -Tunneling No -Undermining/Tunneling No -Circular Undermining No -Exudate Amt Small (1-33%) -Exudate Type Serosanguineous -Wound Margin Distinct, Outline Attached -Granulation Amt Medium (34-66%) -Granulation Quality Pale [place] -Slough/Fibrin Yes -Necrosis Amt None Present (0 %) -Necrotic Tissue Type Adherent Slough -Structure Exposed None/Limited to Skin Breakdown -Texture (Yessy-wound Skin Appearance) No Abnormality -Moisture (Yessy-wound Skin Appearance No Abnormality ) Assessed -Color (Yessy-wound Skin Appearance) No Abnormality Assessed -Temperature (Yessy-wound Skin No Abnormality Appearance) (Pt Warm) -Tenderness on Palpation (Yessy-wound No Skin Appearance) -Ulcer Cleansing Rinsed/ Irrigated with Saline -Foul Odor after Cleansing No -Anesthetic Used 4% Lidocaine Solution #1- LEFT MEDIAL LE -Combined with other wound No -Current Size (cm) - Length 5.5 -Current Size (cm) - Width 3.8 -Current Size (cm) - Depth 0.1 -Total Square Cm 20.90 -Photo Taken No -Epithelialization None Present -Tunneling No -Undermining/Tunneling No -Circular Undermining No -Exudate Amt Medium (34-66%) -Exudate Type Serosanguineous -Wound Margin Distinct, Outline Attached -Granulation Amt Medium (34-66%) -Granulation Quality [place] -Slough/Fibrin Yes -Necrosis Amt None Present (0 %) -Necrotic Tissue Type Adherent Slough -Structure Exposed None/Limited to Skin Breakdown -Texture (Yessy-wound Skin Appearance) No Abnormality Assessed -Moisture (Yessy-wound Skin Appearance No Abnormality ) Assessed -Color (Yessy-wound Skin Appearance) No Abnormality Assessed -Temperature (Yessy-wound Skin No Abnormality Appearance) (Pt Warm) -Tenderness on Palpation (Yessy-wound Yes Skin Appearance) -Ulcer Cleansing Rinsed/ Irrigated with Saline -Foul Odor after Cleansing No -Anesthetic Used 4% Lidocaine Solution [Edema Assessment] -Lower Limb Edema Present No -Left Calf (cm) 35 -Left Ankle (cm) 21 WC - Nurse 2 - General Ulcer CM Notes Start: 01/20/18 14:08 Freq: Status: Active Protocol: Activity Type Activity Date Activity User E-Sign Co-Sign Detail Recorded Client Recorded Date Recorded By Document 01/27/18 15:57 [id number] 01/27/18 15:58 01/27/18 15:57 Wound Center Nurse 2 [Procedure/Treatment] #2 LEFT GRAY -Time 15:57 -Correct Patient Yes -Correct Side, Site, Position Yes -Correct Procedure Yes -Procedure Performed Yes -Type of Procedure Debridement -Clinical Debridement Subcutaneous -Post Debridement Size (cm) - Length 0.5 -Post Debridement Size (cm) - Width 0.3 -Post Debridement Size (cm) - Depth 0.2 -Total Square Cm 0.15 -Wound/Ulcer Outcome Not Healed -Ulcer Cleansing Rinsed/ Irrigated with Saline -Foul Odor after Cleansing No -Bioengineered Tissue No -Topical Lidocaine (%) 4 -Bleeding Controlled with Pressure -Treatment Response Procedure Tolerated Well #1- LEFT MEDIAL LE -Time 15:57 -Correct Patient Yes -Correct Side, Site, Position Yes -Correct Procedure Yes -Procedure Performed Yes -Type of Procedure Debridement -Clinical Debridement Subcutaneous -Post Debridement Size (cm) - Length 5.4 -Post Debridement Size (cm) - Width 4.0 -Post Debridement Size (cm) - Depth 0.2 -Total Square Cm 21.60 -Wound/Ulcer Outcome Not Healed -Ulcer Cleansing Rinsed/ Irrigated with Saline -Foul Odor after Cleansing No -Bioengineered Tissue No -Topical Lidocaine (%) 4 -Bleeding Controlled with Pressure -Treatment Response Procedure Tolerated Well [See Physician Procedure note for Specifics] Pain Scale: 0-10 Numeric [Pain] -Is Patient Pain Free? Yes Psych/Mental Status: Normal Affect, Appropriate Debridement Note Post-Debridement Measurements/Treatment WC - Nurse 2 - General Ulcer CM Notes Start: 01/20/18 14:08 Freq: Status: Active Protocol: Activity Type Activity Date Activity User E-Sign Co-Sign Detail Recorded Client Recorded Date Recorded By Document 01/20/18 15:27 [id number] 01/20/18 15:31 Document 01/27/18 15:57 [id number] 01/27/18 15:58 TM 01/20/18 01/27/18 15:27 15:57 Wound Center Nurse 2 #2 LEFT GRAY -Time 15:27 15:57 -Correct Patient Yes Yes -Correct Side, Site, Position Yes Yes -Correct Procedure Yes Yes -Procedure Performed Yes Yes -Type of Procedure Debridement Debridement -Clinical Debridement Subcutaneous Subcutaneous -Post Debridement Size (cm) - Length 0.8 0.5 -Post Debridement Size (cm) - Width 0.4 0.3 -Post Debridement Size (cm) - Depth 0.3 0.2 -Total Square Cm 0.32 0.15 -Wound/Ulcer Outcome Not Healed Not Healed -Ulcer Cleansing Rinsed/ Rinsed/ Irrigated with Irrigated with Saline Saline -Foul Odor after Cleansing No No -Bioengineered Tissue No No -Topical Lidocaine (%) 5 4 -Bleeding Controlled with Pressure Pressure -Treatment Response Procedure Procedure Tolerated Well Tolerated Well #1- LEFT MEDIAL LE -Time 15:28 15:57 -Correct Patient Yes Yes -Correct Side, Site, Position Yes Yes -Correct Procedure Yes Yes -Procedure Performed Yes Yes -Type of Procedure Debridement Debridement -Clinical Debridement Subcutaneous Subcutaneous -Post Debridement Size (cm) - Length 5.5 5.4 -Post Debridement Size (cm) - Width 4.3 4.0 -Post Debridement Size (cm) - Depth 0.2 0.2 -Total Square Cm 23.65 21.60 -Wound/Ulcer Outcome Not Healed Not Healed -Ulcer Cleansing Rinsed/ Rinsed/ Irrigated with Irrigated with Saline Saline -Foul Odor after Cleansing No No -Bioengineered Tissue No No -Topical Lidocaine (%) 5 4 -Bleeding Controlled with Pressure Pressure -Other CIRCULAR UNDERMING 0.3CM -Treatment Response Procedure Procedure Tolerated Well Tolerated Well Pain Scale: 0-10 Numeric Is Patient Pain Free? Yes Yes Wound debrided: left gray Laterality: Left Type of Debridement: Excisional debridement Anesthesia Used: 4% Lidocaine Solution Depth: Down to and including healthy tissue, in the subcutaneous layer Percentage of wound debrided: 100 Instrument Used: 5mm curette Tissue Removed: yellow slough, devitalized tissue Severity: Fat Layer Exposed Amount of bleeding with debridement: Mild Bleeding Controlled with: Compression and gauze Patient tolerated procedure well - Additional Wound Wound debrided: left medial LE Laterality: Left Type of Debridement: Excisional debridement Anesthesia Used: 4% Lidocaine Solution Depth: Down to and including healthy tissue, in the subcutaneous layer Percentage of wound debrided: 100 Instrument Used: 5mm curette Tissue Removed: yellow slough, devitalized tissue Severity: Fat Layer Exposed Amount of bleeding with debridement: Mild Bleeding Controlled with: Compression and gauze Patient tolerated procedure: Patient tolerated procedure well Assessment/Plan Active Problems Traumatic open wound of left lower leg (Chronic) Hyperlipidemia (Chronic) Diabetes mellitus type 2, controlled (Chronic) Chronic anticoagulation (Chronic) Assessment: nonhealing wounds to left gray due to trauma Plan: Enrique's wounds were evaluated and debrided today. Will have him continue to use Aquacel Ag as a primary dressing with adaptic and gauze. Will have him use tubigrip for compression. If there is not significant improvement in the next 2 weeks would obtain vascular testing to assess for compromised vascular system. Puraply was denied. He ultimately may also benefit from treatment with an Apligraf if his healing is stalled. Encouraged tight glucose control. Elevation of his legs when possible. Increased protein intake to promote healing. F/U in 2 weeks.
[2018-02-10 13:17] VITALS: BP 131/63; PULSE 72; RESP 16; TEMP 36.6
--- NOTE | 2018-02-10 18:16 | PCM.WC.PN ---
(1) Traumatic open wound of left lower leg Status: Chronic Current Visit: Yes Qualifiers: Encounter type: subsequent encounter Qualified Code(s): S81.802D - Unspecified open wound, left lower leg, subsequent encounter Code(s): S81.802A - Unspecified open wound, left lower leg, initial encounter Comment: hematoma drained spontaneously after being struck with piece of wood to gray (2) Hyperlipidemia Status: Chronic Current Visit: Yes Qualifiers: Hyperlipidemia type: unspecified Qualified Code(s): E78.5 - Hyperlipidemia, unspecified Code(s): E78.5 - Hyperlipidemia, unspecified (3) Diabetes mellitus type 2, controlled Status: Chronic Current Visit: Yes Qualifiers: Diabetes mellitus bindery machine feeder offbearer insulin use: unspecified correction insulin use status Code(s): E11.9 - Type 2 diabetes mellitus without complications (4) Chronic anticoagulation Status: Chronic Current Visit: Yes Code(s): Z79.01 - clinical training specialist (current) use of anticoagulants Type of Wound Chief Complaint: nonhealing wound to left gray due to trauma/hematoma s/p being struck with piece of wood to gray History of Wound: Enrique is a 72 yo male who is referred for treatment at the wound healing center by Dr. Comer for a nonhealing wound of his left gray due to trauma with resultant hematoma. Enrique injured his leg on December 23, 2017 when a piece of wood dropped and struck his lower leg and he subsequently developed a hematoma due to his chronic anticoagulation with coumadin for A. fib. The skin over the hematoma sloughed off after he put hand cardiology specialist over it and used a heating pad over it and subsequently the clot evacuated itself and he was left with an open wound. Since that time he was applying neosporin and gauze or using wet to dry dressings to the wound. He denies significant drainage, pain or erythema. INR on 01/02/18 was 3.1 Progress of Wound: Enrique returns for follow up of his nonhealing traumatic wound to his left gray. He tolerated dressings and does note some drainage from wound and occasionally some pain but all this is improving. Denies odor or erythema increase. He has been tolerating tubigrip compression. Puraply application was denied. - Physical Exam Vital Signs Temp Pulse Resp BP 97.8 F 72 16 131/63 H 02/10/18 13:17 02/10/18 13:17 02/10/18 13:17 02/10/18 13:17 General: Alert, Oriented x3, Cooperative, No apparent distress HEENT: Atraumatic, Normocephalic Oral: Moist Mucosa Abdomen: Obese Extremities: Edema Skin: Ulcer/ Wound Wound Measurements and Assessment WC - Nurse 1 - General Ulcer Measurement Start: 01/20/18 14:08 Freq: Status: Active Protocol: Activity Type Activity Date Activity User E-Sign Co-Sign Detail Recorded Client Recorded Date Recorded By Document 02/10/18 13:17 WI [id number] 02/10/18 13:21 [place] 02/10/18 13:17 Wound Center Nurse 1 [Ulcer Assessment] #2 LEFT GRAY -Combined with other wound No -Current Size (cm) - Length 0.1 -Current Size (cm) - Width 0.1 -Current Size (cm) - Depth 0.1 -Total Square Cm 0.01 -Photo Taken No -Epithelialization Large 67-100% -Tunneling No -Undermining/Tunneling No -Circular Undermining No #1- LEFT MEDIAL LE -Combined with other wound No -Current Size (cm) - Length 5.4 -Current Size (cm) - Width 3.7 -Current Size (cm) - Depth 0.1 -Total Square Cm 19.98 -Photo Taken No -Tunneling No -Undermining/Tunneling No -Circular Undermining No -Exudate Amt Medium (34-66%) -Exudate Type Purulent -Wound Margin Flat & Intact -Granulation Amt Medium (34-66%) -Granulation Quality Pale [place] -Necrosis Amt Medium (34-66%) -Necrotic Tissue Type Adherent Slough -Texture (Yessy-wound Skin Appearance) Assessed -Moisture (Yessy-wound Skin Appearance Assessed ) -Color (Yessy-wound Skin Appearance) Assessed Hemosiderin Staining -Temperature (Yessy-wound Skin No Abnormality Appearance) (Pt Warm) -Tenderness on Palpation (Yessy-wound No Skin Appearance) -Ulcer Cleansing Rinsed/ Irrigated with Saline -Foul Odor after Cleansing No -Anesthetic Used 4% Lidocaine Solution [Edema Assessment] -Left Calf (cm) 32 -Left Ankle (cm) 21 WC - Nurse 2 - General Ulcer CM Notes Start: 01/20/18 14:08 Freq: Status: Active Protocol: Activity Type Activity Date Activity User E-Sign Co-Sign Detail Recorded Client Recorded Date Recorded By Document 02/10/18 14:25 TM [id number] 02/10/18 14:28 TM 02/10/18 14:25 Wound Center Nurse 2 [Procedure/Treatment] #2 LEFT GRAY -Time 14:25 -Correct Patient Yes -Correct Side, Site, Position Yes -Correct Procedure Yes -Procedure Performed Yes -Type of Procedure Debridement -Clinical Debridement Subcutaneous -Post Debridement Size (cm) - Length 0.3 -Post Debridement Size (cm) - Width 0.1 -Post Debridement Size (cm) - Depth 0.1 -Total Square Cm 0.03 -Wound/Ulcer Outcome Not Healed -Ulcer Cleansing Rinsed/ Irrigated with Saline -Foul Odor after Cleansing No -Bioengineered Tissue No -Topical Lidocaine (%) 4 -Bleeding Controlled with Pressure -Treatment Response Procedure Tolerated Well #1- LEFT MEDIAL LE -Time 14:26 -Correct Patient Yes -Correct Side, Site, Position Yes -Correct Procedure Yes -Procedure Performed Yes -Type of Procedure Debridement -Clinical Debridement Subcutaneous -Post Debridement Size (cm) - Length 5.3 -Post Debridement Size (cm) - Width 3.9 -Post Debridement Size (cm) - Depth 0.2 -Total Square Cm 20.67 -Wound/Ulcer Outcome Not Healed -Ulcer Cleansing Rinsed/ Irrigated with Saline -Foul Odor after Cleansing No -Bioengineered Tissue No -Topical Lidocaine (%) 4 -Bleeding Controlled with Pressure -Treatment Response Procedure Tolerated Well [See Physician Procedure note for Specifics] Pain Scale: 0-10 Numeric [Pain] -Is Patient Pain Free? Yes Psych/Mental Status: Normal Affect, Appropriate Debridement Note Post-Debridement Measurements/Treatment WC - Nurse 2 - General Ulcer CM Notes Start: 01/20/18 14:08 Freq: Status: Active Protocol: Activity Type Activity Date Activity User E-Sign Co-Sign Detail Recorded Client Recorded Date Recorded By Document 01/20/18 15:27 TM [id number] 01/20/18 15:31 TM Document 01/27/18 15:57 TM [id number] 01/27/18 15:58 TM Document 02/10/18 14:25 TM [id number] 02/10/18 14:28 TM 01/20/18 01/27/18 02/10/18 15:27 15:57 14:25 Wound Center Nurse 2 #2 LEFT GRAY -Time 15:27 15:57 14:25 -Correct Patient Yes Yes Yes -Correct Side, Site, Position Yes Yes Yes -Correct Procedure Yes Yes Yes -Procedure Performed Yes Yes Yes -Type of Procedure Debridement Debridement Debridement -Clinical Debridement Subcutaneous Subcutaneous Subcutaneous -Post Debridement Size (cm) - Length 0.8 0.5 0.3 -Post Debridement Size (cm) - Width 0.4 0.3 0.1 -Post Debridement Size (cm) - Depth 0.3 0.2 0.1 -Total Square Cm 0.32 0.15 0.03 -Wound/Ulcer Outcome Not Healed Not Healed Not Healed -Ulcer Cleansing Rinsed/ Rinsed/ Rinsed/ Irrigated with Irrigated with Irrigated with Saline Saline Saline -Foul Odor after Cleansing No No No -Bioengineered Tissue No No No -Topical Lidocaine (%) 5 4 4 -Bleeding Controlled with Pressure Pressure Pressure -Treatment Response Procedure Procedure Procedure Tolerated Well Tolerated Well Tolerated Well #1- LEFT MEDIAL LE -Time 15:28 15:57 14:26 -Correct Patient Yes Yes Yes -Correct Side, Site, Position Yes Yes Yes -Correct Procedure Yes Yes Yes -Procedure Performed Yes Yes Yes -Type of Procedure Debridement Debridement Debridement -Clinical Debridement Subcutaneous Subcutaneous Subcutaneous -Post Debridement Size (cm) - Length 5.5 5.4 5.3 -Post Debridement Size (cm) - Width 4.3 4.0 3.9 -Post Debridement Size (cm) - Depth 0.2 0.2 0.2 -Total Square Cm 23.65 21.60 20.67 -Wound/Ulcer Outcome Not Healed Not Healed Not Healed -Ulcer Cleansing Rinsed/ Rinsed/ Rinsed/ Irrigated with Irrigated with Irrigated with Saline Saline Saline -Foul Odor after Cleansing No No No -Bioengineered Tissue No No No -Topical Lidocaine (%) 5 4 4 -Bleeding Controlled with Pressure Pressure Pressure -Other CIRCULAR UNDERMING 0.3CM -Treatment Response Procedure Procedure Procedure Tolerated Well Tolerated Well Tolerated Well Pain Scale: 0-10 Numeric Is Patient Pain Free? Yes Yes Yes Wound debrided: left gray Laterality: Left Type of Debridement: Excisional debridement Anesthesia Used: 4% Lidocaine Solution Depth: Down to and including healthy tissue, in the subcutaneous layer Percentage of wound debrided: 100 Instrument Used: 5mm curette Tissue Removed: yellow slough, devitalized tissue Severity: Fat Layer Exposed Amount of bleeding with debridement: Mild Bleeding Controlled with: Compression and gauze Patient tolerated procedure well - Additional Wound Wound debrided: left medial LE Laterality: Left Type of Debridement: Excisional debridement Anesthesia Used: 4% Lidocaine Solution Depth: Down to and including healthy tissue, in the subcutaneous layer Percentage of wound debrided: 100 Instrument Used: 5mm curette Tissue Removed: yellow slough, devitalized tissue Severity: Fat Layer Exposed Amount of bleeding with debridement: Mild Bleeding Controlled with: Compression and gauze Patient tolerated procedure: Patient tolerated procedure well Assessment/Plan Active Problems Traumatic open wound of left lower leg (Chronic) hematoma drained spontaneously after being struck with piece of wood to gray Hyperlipidemia (Chronic) Diabetes mellitus type 2, controlled (Chronic) Chronic anticoagulation (Chronic) Assessment: nonhealing wounds to left gray due to trauma and hematoma after being struck with a piece of wood Plan: Enrique's wounds were evaluated and debrided today. Will have him continue to use Aquacel Ag as a primary dressing with adaptic and gauze. Will have him use tubigrip for compression. If there is not significant improvement in the next 2 weeks would obtain vascular testing to assess for compromised vascular system. Puraply was denied. He ultimately may also benefit from treatment with an Apligraf if his healing is stalled. Encouraged tight glucose control. Elevation of his legs when possible. Increased protein intake to promote healing. F/U in 2 weeks as he will be out of town next week.
== END 2018-02-12 23:59 ==
LOC: WC 13:30
PROVIDERS: PCP Family Medicine; Visit Provider Family Medicine
DX: S80.12XA Contusion of left lower leg, initial encounter (principal); W22.8XXA Striking against or struck by other objects, initial encounter; E11.9 Type 2 diabetes mellitus without complications; E78.5 Hyperlipidemia, unspecified; Z79.01 Long term (current) use of anticoagulants; I48.91 Unspecified atrial fibrillation
CPT/HCPCS: 11042; 11045

== ENCOUNTER 2018-03-10 14:15 | Outpatient (RCR) | payer OTHER, SELFPAY ==
[2018-02-13 01:30] VITALS: BP 131/63; PULSE 72; RESP 16; TEMP 36.6
[2018-02-24 14:18] VITALS: BP 126/66; PULSE 77; RESP 18; TEMP 36
--- NOTE | 2018-02-24 16:54 | PCM.WC.PN ---
(1) Traumatic open wound of left lower leg Status: Chronic Current Visit: Yes Qualifiers: Encounter type: subsequent encounter Code(s): S81.802A - Unspecified open wound, left lower leg, initial encounter Comment: hematoma drained spontaneously after being struck with piece of wood to gray (2) Diabetes mellitus type 2, controlled Status: Chronic Current Visit: Yes Qualifiers: Diabetes mellitus longterm insulin use: unspecified longterm insulin use status Diabetes mellitus complication status: with unspecified complications Qualified Code(s): E11.8 - Type 2 diabetes mellitus with unspecified complications Code(s): E11.9 - Type 2 diabetes mellitus without complications (3) Chronic anticoagulation Status: Chronic Current Visit: Yes Code(s): Z79.01 - [facility] (current) use of anticoagulants Type of Wound Chief Complaint: nonhealing wound to left gray due to trauma/hematoma s/p being struck with piece of wood to gray History of Wound: Enrique is a 72 yo male who is referred for treatment at the wound healing center by Dr. Comer for a nonhealing wound of his left gray due to trauma with resultant hematoma. Enrique injured his leg on December 23, 2017 when a piece of wood dropped and struck his lower leg and he subsequently developed a hematoma due to his chronic anticoagulation with coumadin for A. fib. The skin over the hematoma sloughed off after he put hand senior biostatistician/group leader over it and used a heating pad over it and subsequently the clot evacuated itself and he was left with an open wound. Since that time he was applying neosporin and gauze or using wet to dry dressings to the wound. He denies significant drainage, pain or erythema. INR on 01/02/18 was 3.1 Progress of Wound: Enrique returns for follow up of his nonhealing traumatic wound to his left gray. He tolerated dressings and does note some drainage from wound but this is improving. Denies odor or erythema increasing. He has been tolerating tubigrip compression. Puraply application was denied by insurance. - Physical Exam Vital Signs Temp Pulse Resp BP 96.8 F L 77 18 126/66 H 02/24/18 14:18 02/24/18 14:18 02/24/18 14:18 02/24/18 14:18 General: Alert, Oriented x3, Cooperative, No apparent distress HEENT: Atraumatic, Normocephalic Oral: Moist Mucosa Abdomen: Obese Extremities: Edema Skin: Ulcer/ Wound Wound Measurements and Assessment WC - Nurse 1 - General Ulcer Measurement Start: 02/24/18 14:18 Freq: Status: Active Protocol: Activity Type Activity Date Activity User E-Sign Co-Sign Detail Recorded Client Recorded Date Recorded By Document 02/24/18 14:18 CS [id number] 02/24/18 14:25 CS 02/24/18 14:18 Wound Center Nurse 1 [Ulcer Assessment] #2 LEFT GRAY -Combined with other wound No -Current Size (cm) - Length 0.1 -Current Size (cm) - Width 0.1 -Current Size (cm) - Depth 0.1 -Total Square Cm 0.01 -Photo Taken No -Epithelialization Large 67-100% -Tunneling No -Undermining/Tunneling No -Texture (Yessy-wound Skin Appearance) Scarring -Temperature (Yessy-wound Skin No Abnormality Appearance) (Pt Warm) -Tenderness on Palpation (Yessy-wound No Skin Appearance) -Ulcer Cleansing Rinsed/ Irrigated with Saline -Foul Odor after Cleansing No -Anesthetic Used 4% Lidocaine Solution #1- LEFT MEDIAL LE -Combined with other wound No -Current Size (cm) - Length 4.7 -Current Size (cm) - Width 3.8 -Current Size (cm) - Depth 0.1 -Total Square Cm 17.86 -Photo Taken No -Epithelialization Small 1-33% -Tunneling No -Undermining/Tunneling No -Circular Undermining No -Exudate Amt Medium (34-66%) -Exudate Type Serosanguineous -Wound Margin Distinct, Outline Attached -Granulation Amt None Present (0 %) -Granulation Quality Pale -Slough/Fibrin Yes -Necrosis Amt None Present (0 %) -Necrotic Tissue Type Adherent Slough -Structure Exposed None/Limited to Skin Breakdown -Texture (Yessy-wound Skin Appearance) Scarring -Moisture (Yessy-wound Skin Appearance No Abnormality ) Assessed -Color (Yessy-wound Skin Appearance) No Abnormality Assessed -Temperature (Yessy-wound Skin No Abnormality Appearance) (Pt Warm) -Tenderness on Palpation (Yessy-wound Yes Skin Appearance) -Ulcer Cleansing Rinsed/ Irrigated with Saline -Foul Odor after Cleansing No -Anesthetic Used 4% Lidocaine Solution [Edema Assessment] -Lower Limb Edema Present No WC - Nurse 2 - General Ulcer CM Notes Start: 02/24/18 14:18 Freq: Status: Active Protocol: Activity Type Activity Date Activity User E-Sign Co-Sign Detail Recorded Client Recorded Date Recorded By Document 02/24/18 14:28 [id number] 02/24/18 14:38 02/24/18 14:28 Wound Center Nurse 2 [Procedure/Treatment] #2 LEFT GRAY -Time 14:29 -Correct Patient No -Correct Side, Site, Position No -Correct Procedure No -Procedure Performed No -Post Debridement Size (cm) - Length 0.1 -Post Debridement Size (cm) - Width 0.1 -Post Debridement Size (cm) - Depth 0.1 -Total Square Cm 0.01 -Wound/Ulcer Outcome Healed- Epithelialized #1- LEFT MEDIAL LE -Time 14:29 -Correct Patient Yes -Correct Side, Site, Position Yes -Correct Procedure Yes -Procedure Performed Yes -Type of Procedure Debridement -Clinical Debridement Subcutaneous -Post Debridement Size (cm) - Length 4.5 -Post Debridement Size (cm) - Width 3.4 -Post Debridement Size (cm) - Depth 0.2 -Total Square Cm 15.30 -Wound/Ulcer Outcome Not Healed -Ulcer Cleansing Not Cleansed -Foul Odor after Cleansing No -Type of bioengineered Tissue Apligraf -Bleeding Controlled with NA -Treatment Response Procedure Tolerated Well [See Physician Procedure note for Specifics] Pain Scale: 0-10 Numeric [Pain] -Is Patient Pain Free? Yes Psych/Mental Status: Normal Affect, Appropriate Debridement Note Post-Debridement Measurements/Treatment - Nurse 2 - General Ulcer CM Notes Start: 02/24/18 14:18 Freq: Status: Active Protocol: Activity Type Activity Date Activity User E-Sign Co-Sign Detail Recorded Client Recorded Date Recorded By Document 02/24/18 14:28 [id number] 02/24/18 14:38 02/24/18 14:28 Wound Center Nurse 2 #2 LEFT GRAY -Time 14:29 -Correct Patient No -Correct Side, Site, Position No -Correct Procedure No -Procedure Performed No -Post Debridement Size (cm) - Length 0.1 -Post Debridement Size (cm) - Width 0.1 -Post Debridement Size (cm) - Depth 0.1 -Total Square Cm 0.01 -Wound/Ulcer Outcome Healed- Epithelialized #1- LEFT MEDIAL LE -Time 14:29 -Correct Patient Yes -Correct Side, Site, Position Yes -Correct Procedure Yes -Procedure Performed Yes -Type of Procedure Debridement -Clinical Debridement Subcutaneous -Post Debridement Size (cm) - Length 4.5 -Post Debridement Size (cm) - Width 3.4 -Post Debridement Size (cm) - Depth 0.2 -Total Square Cm 15.30 -Wound/Ulcer Outcome Not Healed -Ulcer Cleansing Not Cleansed -Foul Odor after Cleansing No -Type of bioengineered Tissue Apligraf -Bleeding Controlled with NA -Treatment Response Procedure Tolerated Well Pain Scale: 0-10 Numeric Is Patient Pain Free? Yes Wound debrided: left gray Laterality: Left No debridement was completed today - due to the wound being healed - Additional Wound Wound debrided: left medial LE Laterality: Left Type of Debridement: Excisional debridement Anesthesia Used: 4% Lidocaine Solution Depth: Down to and including healthy tissue, in the subcutaneous layer Percentage of wound debrided: 100 Instrument Used: 7mm curette Tissue Removed: yellow slough, devitalized tissue Severity: Fat Layer Exposed Amount of bleeding with debridement: Mild Bleeding Controlled with: Compression and gauze Patient tolerated procedure: Patient tolerated procedure well Assessment/Plan Active Problems Traumatic open wound of left lower leg (Chronic) hematoma drained spontaneously after being struck with piece of wood to gray Diabetes mellitus type 2, controlled (Chronic) Chronic anticoagulation (Chronic) Assessment: nonhealing wounds to left gray due to trauma and hematoma after being struck with a piece of wood Plan: Enrique's wounds were evaluated and debrided today. Will have him continue to use Aquacel Ag as a primary dressing with adaptic and gauze. Will have him use tubigrip for compression. Puraply was denied. He ultimately may also benefit from treatment with an Apligraf if his healing is stalled. Encouraged tight glucose control. Elevation of his legs when possible. Increased protein intake to promote healing. F/U in 1 week.
--- NOTE | 2018-02-24 16:57 | PN.PCM_ITS ---
(1) Traumatic open wound of left lower leg Status: Chronic Current Visit: Yes Qualifiers: Encounter type: subsequent encounter Code(s): S81.802A - Unspecified open wound, left lower leg, initial encounter Comment: hematoma drained spontaneously after being struck with piece of wood to gray (2) Diabetes mellitus type 2, controlled Status: Chronic Current Visit: Yes Qualifiers: Diabetes mellitus prison insulin use: unspecified prison insulin use status Diabetes mellitus complication status: with unspecified complications Qualified Code(s): E11.8 - Type 2 diabetes mellitus with unspecified complications Code(s): E11.9 - Type 2 diabetes mellitus without complications (3) Chronic anticoagulation Status: Chronic Current Visit: Yes Code(s): Z79.01 - [facility] (current) use of anticoagulants Type of Wound Chief Complaint: nonhealing wound to left gray due to trauma/hematoma s/p being struck with piece of wood to gray History of Wound: Enrique is a 72 yo male who is referred for treatment at the wound healing center by Dr. Comer for a nonhealing wound of his left gray due to trauma with resultant hematoma. Enrique injured his leg on December 23, 2017 when a piece of wood dropped and struck his lower leg and he subsequently developed a hematoma due to his chronic anticoagulation with coumadin for A. fib. The skin over the hematoma sloughed off after he put hand betting clerks over it and used a heating pad over it and subsequently the clot evacuated itself and he was left with an open wound. Since that time he was applying neosporin and gauze or using wet to dry dressings to the wound. He denies significant drainage, pain or erythema. INR on 01/02/18 was 3.1 Progress of Wound: Enrique returns for follow up of his nonhealing traumatic wound to his left gray. He tolerated dressings and does note some drainage from wound but this is improving. Denies odor or erythema increasing. He has been tolerating tubigrip compression. Puraply application was denied by insurance. - Physical Exam Vital Signs Temp Pulse Resp BP 96.8 F L 77 18 126/66 H 02/24/18 14:18 02/24/18 14:18 02/24/18 14:18 02/24/18 14:18 General: Alert, Oriented x3, Cooperative, No apparent distress HEENT: Atraumatic, Normocephalic Oral: Moist Mucosa Abdomen: Obese Extremities: Edema Skin: Ulcer/ Wound Wound Measurements and Assessment WC - Nurse 1 - General Ulcer Measurement Start: 02/24/18 14:18 Freq: Status: Active Protocol: Activity Type Activity Date Activity User E-Sign Co-Sign Detail Recorded Client Recorded Date Recorded By Document 02/24/18 14:18 CS [id number] 02/24/18 14:25 CS 02/24/18 14:18 Wound Center Nurse 1 [Ulcer Assessment] #2 LEFT GRAY -Combined with other wound No -Current Size (cm) - Length 0.1 -Current Size (cm) - Width 0.1 -Current Size (cm) - Depth 0.1 -Total Square Cm 0.01 -Photo Taken No -Epithelialization Large 67-100% -Tunneling No -Undermining/Tunneling No -Texture (Yessy-wound Skin Appearance) Scarring -Temperature (Yessy-wound Skin No Abnormality Appearance) (Pt Warm) -Tenderness on Palpation (Yessy-wound No Skin Appearance) -Ulcer Cleansing Rinsed/ Irrigated with Saline -Foul Odor after Cleansing No -Anesthetic Used 4% Lidocaine Solution #1- LEFT MEDIAL LE -Combined with other wound No -Current Size (cm) - Length 4.7 -Current Size (cm) - Width 3.8 -Current Size (cm) - Depth 0.1 -Total Square Cm 17.86 -Photo Taken No -Epithelialization Small 1-33% -Tunneling No -Undermining/Tunneling No -Circular Undermining No -Exudate Amt Medium (34-66%) -Exudate Type Serosanguineous -Wound Margin Distinct, Outline Attached -Granulation Amt None Present (0 %) -Granulation Quality Pale -Slough/Fibrin Yes -Necrosis Amt None Present (0 %) -Necrotic Tissue Type Adherent Slough -Structure Exposed None/Limited to Skin Breakdown -Texture (Yessy-wound Skin Appearance) Scarring -Moisture (Yessy-wound Skin Appearance No Abnormality ) Assessed -Color (Yessy-wound Skin Appearance) No Abnormality Assessed -Temperature (Yessy-wound Skin No Abnormality Appearance) (Pt Warm) -Tenderness on Palpation (Yessy-wound Yes Skin Appearance) -Ulcer Cleansing Rinsed/ Irrigated with Saline -Foul Odor after Cleansing No -Anesthetic Used 4% Lidocaine Solution [Edema Assessment] -Lower Limb Edema Present No WC - Nurse 2 - General Ulcer CM Notes Start: 02/24/18 14:18 Freq: Status: Active Protocol: Activity Type Activity Date Activity User E-Sign Co-Sign Detail Recorded Client Recorded Date Recorded By Document 02/24/18 14:28 [id number] 02/24/18 14:38 02/24/18 14:28 Wound Center Nurse 2 [Procedure/Treatment] #2 LEFT GRAY -Time 14:29 -Correct Patient No -Correct Side, Site, Position No -Correct Procedure No -Procedure Performed No -Post Debridement Size (cm) - Length 0.1 -Post Debridement Size (cm) - Width 0.1 -Post Debridement Size (cm) - Depth 0.1 -Total Square Cm 0.01 -Wound/Ulcer Outcome Healed- Epithelialized #1- LEFT MEDIAL LE -Time 14:29 -Correct Patient Yes -Correct Side, Site, Position Yes -Correct Procedure Yes -Procedure Performed Yes -Type of Procedure Debridement -Clinical Debridement Subcutaneous -Post Debridement Size (cm) - Length 4.5 -Post Debridement Size (cm) - Width 3.4 -Post Debridement Size (cm) - Depth 0.2 -Total Square Cm 15.30 -Wound/Ulcer Outcome Not Healed -Ulcer Cleansing Not Cleansed -Foul Odor after Cleansing No -Type of bioengineered Tissue Apligraf -Bleeding Controlled with NA -Treatment Response Procedure Tolerated Well [See Physician Procedure note for Specifics] Pain Scale: 0-10 Numeric [Pain] -Is Patient Pain Free? Yes Psych/Mental Status: Normal Affect, Appropriate Debridement Note Post-Debridement Measurements/Treatment - Nurse 2 - General Ulcer CM Notes Start: 02/24/18 14:18 Freq: Status: Active Protocol: Activity Type Activity Date Activity User E-Sign Co-Sign Detail Recorded Client Recorded Date Recorded By Document 02/24/18 14:28 [id number] 02/24/18 14:38 02/24/18 14:28 Wound Center Nurse 2 #2 LEFT GRAY -Time 14:29 -Correct Patient No -Correct Side, Site, Position No -Correct Procedure No -Procedure Performed No -Post Debridement Size (cm) - Length 0.1 -Post Debridement Size (cm) - Width 0.1 -Post Debridement Size (cm) - Depth 0.1 -Total Square Cm 0.01 -Wound/Ulcer Outcome Healed- Epithelialized #1- LEFT MEDIAL LE -Time 14:29 -Correct Patient Yes -Correct Side, Site, Position Yes -Correct Procedure Yes -Procedure Performed Yes -Type of Procedure Debridement -Clinical Debridement Subcutaneous -Post Debridement Size (cm) - Length 4.5 -Post Debridement Size (cm) - Width 3.4 -Post Debridement Size (cm) - Depth 0.2 -Total Square Cm 15.30 -Wound/Ulcer Outcome Not Healed -Ulcer Cleansing Not Cleansed -Foul Odor after Cleansing No -Type of bioengineered Tissue Apligraf -Bleeding Controlled with NA -Treatment Response Procedure Tolerated Well Pain Scale: 0-10 Numeric Is Patient Pain Free? Yes Wound debrided: left gray Laterality: Left No debridement was completed today - due to the wound being healed - Additional Wound Wound debrided: left medial LE Laterality: Left Type of Debridement: Excisional debridement Anesthesia Used: 4% Lidocaine Solution Depth: Down to and including healthy tissue, in the subcutaneous layer Percentage of wound debrided: 100 Instrument Used: 7mm curette Tissue Removed: yellow slough, devitalized tissue Severity: Fat Layer Exposed Amount of bleeding with debridement: Mild Bleeding Controlled with: Compression and gauze Patient tolerated procedure: Patient tolerated procedure well Assessment/Plan Active Problems Traumatic open wound of left lower leg (Chronic) hematoma drained spontaneously after being struck with piece of wood to gray Diabetes mellitus type 2, controlled (Chronic) Chronic anticoagulation (Chronic) Assessment: nonhealing wounds to left gray due to trauma and hematoma after being struck with a piece of wood Plan: Enrique's wounds were evaluated and debrided today. Will have him continue to use Aquacel Ag as a primary dressing with adaptic and gauze. Will have him use tubigrip for compression. Puraply was denied. He ultimately may also benefit from treatment with an Apligraf if his healing is stalled. Encouraged tight glucose control. Elevation of his legs when possible. Increased protein intake to promote healing. F/U in 1 week.
[2018-03-03 14:17] VITALS: BP 127/49; PULSE 71; RESP 18; TEMP 37.2
--- NOTE | 2018-03-03 18:10 | PN.PCM_ITS ---
(1) Traumatic open wound of left lower leg Status: Chronic Current Visit: Yes Qualifiers: Encounter type: subsequent encounter Code(s): S81.802A - Unspecified open wound, left lower leg, initial encounter Comment: hematoma drained spontaneously after being struck with piece of wood to gray (2) Diabetes mellitus type 2, controlled Status: Chronic Current Visit: Yes Qualifiers: Diabetes mellitus care home insulin use: unspecified care home insulin use status Diabetes mellitus complication status: with unspecified complications Qualified Code(s): E11.8 - Type 2 diabetes mellitus with unspecified complications Code(s): E11.9 - Type 2 diabetes mellitus without complications (3) Chronic anticoagulation Status: Chronic Current Visit: Yes Code(s): Z79.01 - [facility] (current) use of anticoagulants Type of Wound Chief Complaint: nonhealing wound to left gray due to trauma/hematoma s/p being struck with piece of wood to gray History of Wound: Enrique is a 72 yo male who is referred for treatment at the wound healing center by Dr. Comer for a nonhealing wound of his left gray due to trauma with resultant hematoma. Enrique injured his leg on December 23, 2017 when a piece of wood dropped and struck his lower leg and he subsequently developed a hematoma due to his chronic anticoagulation with coumadin for A. fib. The skin over the hematoma sloughed off after he put hand mosaic layer over it and used a heating pad over it and subsequently the clot evacuated itself and he was left with an open wound. Since that time he was applying neosporin and gauze or using wet to dry dressings to the wound. He denies significant drainage, pain or erythema. INR on 01/02/18 was 3.1 Progress of Wound: Enrique returns for follow up of his nonhealing traumatic wound to his left gray. He tolerated dressings and does note some drainage from wound but this is decreasing. Denies odor or erythema increasing. He has been tolerating tubigrip compression. Puraply application was denied by insurance. - Physical Exam Vital Signs Temp Pulse Resp BP 98.9 F 71 18 127/49 H 03/03/18 14:17 03/03/18 14:17 03/03/18 14:17 03/03/18 14:17 General: Alert, Oriented x3, Cooperative, No apparent distress HEENT: Atraumatic, Normocephalic Oral: Moist Mucosa Abdomen: Obese Extremities: Edema Skin: Ulcer/ Wound Wound Measurements and Assessment WC - Nurse 1 - General Ulcer Measurement Start: 02/24/18 14:18 Freq: Status: Active Protocol: Activity Type Activity Date Activity User E-Sign Co-Sign Detail Recorded Client Recorded Date Recorded By Document 03/03/18 14:17 AN [id number] 03/03/18 14:32 AN 03/03/18 14:17 Wound Center Nurse 1 [Ulcer Assessment] #1- LEFT MEDIAL LE -Combined with other wound No -Current Size (cm) - Length 4.1 -Current Size (cm) - Width 3.4 -Current Size (cm) - Depth 0.1 -Total Square Cm 13.94 -Epithelialization None Present -Circular Undermining No -Classification - Thickness Full Thickness with Exposed Support Structure -Exudate Amt Small (1-33%) -Exudate Type Serosanguineous -Wound Margin Flat & Intact -Granulation Amt Medium (34-66%) -Granulation Quality Red -Slough/Fibrin Yes -Necrosis Amt Small (1-33%) -Necrotic Tissue Type Adherent Slough -Structure Exposed Fat Layer Exposed -Texture (Yessy-wound Skin Appearance) No Abnormality -Moisture (Yessy-wound Skin Appearance No Abnormality ) -Color (Yessy-wound Skin Appearance) No Abnormality -Temperature (Yessy-wound Skin No Abnormality Appearance) (Pt Warm) -Ulcer Cleansing Rinsed/ Irrigated with Saline -Foul Odor after Cleansing No -Anesthetic Used 4% Lidocaine Solution [Edema Assessment] -Lower Limb Edema Present No WC - Nurse 2 - General Ulcer CM Notes Start: 02/24/18 14:18 Freq: Status: Active Protocol: Activity Type Activity Date Activity User E-Sign Co-Sign Detail Recorded Client Recorded Date Recorded By Document 03/03/18 14:42 CS [id number] 03/03/18 14:47 CS 03/03/18 14:42 Wound Center Nurse 2 [Procedure/Treatment] #1- LEFT MEDIAL LE -Time 14:44 -Correct Patient Yes -Correct Side, Site, Position Yes -Correct Procedure Yes -Procedure Performed Yes -Type of Procedure Debridement -Clinical Debridement Subcutaneous -Post Debridement Size (cm) - Length 4.2 -Post Debridement Size (cm) - Width 3 -Post Debridement Size (cm) - Depth 0.1 -Total Square Cm 12.6 -Wound/Ulcer Outcome Not Healed -Ulcer Cleansing Not Cleansed -Foul Odor after Cleansing No -Bioengineered Tissue No -Bleeding Controlled with NA -Treatment Response Procedure Tolerated Well [See Physician Procedure note for Specifics] Pain Scale: 0-10 Numeric [Pain] -Is Patient Pain Free? Yes Psych/Mental Status: Normal Affect, Appropriate Debridement Note Post-Debridement Measurements/Treatment WC - Nurse 2 - General Ulcer CM Notes Start: 02/24/18 14:18 Freq: Status: Active Protocol: Activity Type Activity Date Activity User E-Sign Co-Sign Detail Recorded Client Recorded Date Recorded By Document 02/24/18 14:28 [id number] 02/24/18 14:38 CS Document 03/03/18 14:42 [id number] 03/03/18 14:47 CS 02/24/18 03/03/18 14:28 14:42 Wound Center Nurse 2 #2 LEFT GRAY -Time 14:29 -Correct Patient No -Correct Side, Site, Position No -Correct Procedure No -Procedure Performed No -Post Debridement Size (cm) - Length 0.1 -Post Debridement Size (cm) - Width 0.1 -Post Debridement Size (cm) - Depth 0.1 -Total Square Cm 0.01 -Wound/Ulcer Outcome Healed- Epithelialized #1- LEFT MEDIAL LE -Time 14:29 14:44 -Correct Patient Yes Yes -Correct Side, Site, Position Yes Yes -Correct Procedure Yes Yes -Procedure Performed Yes Yes -Type of Procedure Debridement Debridement -Clinical Debridement Subcutaneous Subcutaneous -Post Debridement Size (cm) - Length 4.5 4.2 -Post Debridement Size (cm) - Width 3.4 3 -Post Debridement Size (cm) - Depth 0.2 0.1 -Total Square Cm 15.30 12.6 -Wound/Ulcer Outcome Not Healed Not Healed -Ulcer Cleansing Not Cleansed Not Cleansed -Foul Odor after Cleansing No No -Bioengineered Tissue No -Type of bioengineered Tissue Apligraf -Bleeding Controlled with NA NA -Treatment Response Procedure Procedure Tolerated Well Tolerated Well Pain Scale: 0-10 Numeric Is Patient Pain Free? Yes Yes Wound debrided: left medial LE Laterality: Left Type of Debridement: Excisional debridement Anesthesia Used: 4% Lidocaine Solution Depth: Down to and including healthy tissue, in the subcutaneous layer Percentage of wound debrided: 100 Instrument Used: 7mm curette Tissue Removed: yellow slough, devitalized tissue Severity: Fat Layer Exposed Amount of bleeding with debridement: Mild Bleeding Controlled with: Compression and gauze Patient tolerated procedure well Assessment/Plan Active Problems Traumatic open wound of left lower leg (Chronic) hematoma drained spontaneously after being struck with piece of wood to gray Diabetes mellitus type 2, controlled (Chronic) Chronic anticoagulation (Chronic) Assessment: nonhealing wounds to left gray due to trauma and hematoma after being struck with a piece of wood Plan: Enrique's wounds were evaluated and debrided today. Will have him continue to use Aquacel Ag as a primary dressing with adaptic and gauze. Will have him use tubigrip for compression. Puraply was denied. He ultimately may also benefit from treatment with an Apligraf if his healing is stalled. Encouraged tight glucose control. Elevation of his legs when possible. Increased protein intake to promote healing. F/U in 1 week.
[2018-03-10 14:49] VITALS: BP 119/66; PULSE 80; RESP 16; TEMP 36.1
--- NOTE | 2018-03-10 18:26 | PN.PCM_ITS ---
(1) Traumatic open wound of left lower leg Status: Chronic Current Visit: Yes Qualifiers: Encounter type: subsequent encounter Code(s): S81.802A - Unspecified open wound, left lower leg, initial encounter Comment: hematoma drained spontaneously after being struck with piece of wood to gray (2) Diabetes mellitus type 2, controlled Status: Chronic Current Visit: Yes Qualifiers: Diabetes mellitus snf insulin use: unspecified snf insulin use status Diabetes mellitus complication status: with unspecified complications Qualified Code(s): E11.8 - Type 2 diabetes mellitus with unspecified complications Code(s): E11.9 - Type 2 diabetes mellitus without complications (3) Chronic anticoagulation Status: Chronic Current Visit: Yes 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 Comer for a nonhealing wound of his left gray due to trauma with resultant hematoma. Enrique injured his leg on December 23, 2017 when a piece of wood dropped and struck his lower leg and he subsequently developed a hematoma due to his chronic anticoagulation with coumadin for A. fib. The skin over the hematoma sloughed off after he put hand manager transfer over it and used a heating pad over it and subsequently the clot evacuated itself and he was left with an open wound. Since that time he was applying neosporin and gauze or using wet to dry dressings to the wound. He denies significant drainage, pain or erythema. INR on 01/02/18 was 3.1 Progress of Wound: Enrique returns for follow up of his nonhealing traumatic wound to his left gray. He tolerated dressings and does note some drainage from wound but this is decreasing. Denies odor or erythema increasing. He has been tolerating tubigrip compression. Puraply application was denied by insurance. - Physical Exam Vital Signs Temp Pulse Resp BP 97.0 F L 80 16 119/66 03/10/18 14:49 03/10/18 14:49 03/10/18 14:49 03/10/18 14:49 General: Alert, Oriented x3, Cooperative, No apparent distress HEENT: Atraumatic, Normocephalic Oral: Moist Mucosa Abdomen: Obese Extremities: Edema Skin: Ulcer/ Wound Wound Measurements and Assessment WC - Nurse 1 - General Ulcer Measurement Start: 02/24/18 14:18 Freq: Status: Active Protocol: Activity Type Activity Date Activity User E-Sign Co-Sign Detail Recorded Client Recorded Date Recorded By Document 03/10/18 14:46 MT [id number] 03/10/18 14:49 MT 03/10/18 14:46 Wound Center Nurse 1 [Ulcer Assessment] #1- LEFT MEDIAL LE -Combined with other wound No -Current Size (cm) - Length 4 -Current Size (cm) - Width 3 -Current Size (cm) - Depth 0.1 -Total Square Cm 12 -Photo Taken No -Epithelialization Medium 34-66% -Tunneling No -Undermining/Tunneling No -Circular Undermining No -Exudate Amt Small (1-33%) -Exudate Type Serosanguineous -Wound Margin Distinct, Outline Attached -Granulation Amt Large (67-100%) -Granulation Quality Red -Slough/Fibrin Yes -Necrosis Amt Small (1-33%) -Necrotic Tissue Type Adherent Slough -Texture (Yessy-wound Skin Appearance) Assessed Scarring -Moisture (Yessy-wound Skin Appearance Assessed ) -Color (Yessy-wound Skin Appearance) Assessed -Temperature (Yessy-wound Skin No Abnormality Appearance) (Pt Warm) -Tenderness on Palpation (Yessy-wound Yes Skin Appearance) -Ulcer Cleansing Rinsed/ Irrigated with Saline -Foul Odor after Cleansing No -Anesthetic Used 5% Lidocaine Gel [Edema Assessment] -Left Calf (cm) 33 -Point of Measurement (cm from the 20.5 medial instep) WC - Nurse 2 - General Ulcer CM Notes Start: 02/24/18 14:18 Freq: Status: Active Protocol: Activity Type Activity Date Activity User E-Sign Co-Sign Detail Recorded Client Recorded Date Recorded By Document 03/10/18 15:50 MW [id number] 03/10/18 15:54 MW 03/10/18 15:50 Wound Center Nurse 2 [Procedure/Treatment] #1- LEFT MEDIAL LE -Time 15:51 -Correct Patient Yes -Correct Side, Site, Position Yes -Correct Procedure Yes -Procedure Performed Yes -Type of Procedure Debridement -Clinical Debridement Subcutaneous -Post Debridement Size (cm) - Length 3.7 -Post Debridement Size (cm) - Width 2.9 -Post Debridement Size (cm) - Depth 0.1 -Total Square Cm 10.73 -Wound/Ulcer Outcome Not Healed -Ulcer Cleansing Rinsed/ Irrigated with Saline -Foul Odor after Cleansing No -Bioengineered Tissue No -Bleeding Controlled with Pressure -Treatment Response Procedure Tolerated Well [See Physician Procedure note for Specifics] Pain Scale: 0-10 Numeric [Pain] -Is Patient Pain Free? Yes Psych/Mental Status: Normal Affect, Appropriate Debridement Note Post-Debridement Measurements/Treatment WC - Nurse 2 - General Ulcer CM Notes Start: 02/24/18 14:18 Freq: Status: Active Protocol: Activity Type Activity Date Activity User E-Sign Co-Sign Detail Recorded Client Recorded Date Recorded By Document 02/24/18 14:28 CS [id number] 02/24/18 14:38 CS Document 03/03/18 14:42 CS [id number] 03/03/18 14:47 CS Document 03/10/18 15:50 MW [id number] 03/10/18 15:54 MW 02/24/18 03/03/18 03/10/18 14:28 14:42 15:50 Wound Center Nurse 2 #2 LEFT GRAY -Time 14:29 -Correct Patient No -Correct Side, Site, Position No -Correct Procedure No -Procedure Performed No -Post Debridement Size (cm) - Length 0.1 -Post Debridement Size (cm) - Width 0.1 -Post Debridement Size (cm) - Depth 0.1 -Total Square Cm 0.01 -Wound/Ulcer Outcome Healed- Epithelialized #1- LEFT MEDIAL LE -Time 14:29 14:44 15:51 -Correct Patient Yes Yes Yes -Correct Side, Site, Position Yes Yes Yes -Correct Procedure Yes Yes Yes -Procedure Performed Yes Yes Yes -Type of Procedure Debridement Debridement Debridement -Clinical Debridement Subcutaneous Subcutaneous Subcutaneous -Post Debridement Size (cm) - Length 4.5 4.2 3.7 -Post Debridement Size (cm) - Width 3.4 3 2.9 -Post Debridement Size (cm) - Depth 0.2 0.1 0.1 -Total Square Cm 15.30 12.6 10.73 -Wound/Ulcer Outcome Not Healed Not Healed Not Healed -Ulcer Cleansing Not Cleansed Not Cleansed Rinsed/ Irrigated with Saline -Foul Odor after Cleansing No No No -Bioengineered Tissue No No -Type of bioengineered Tissue Apligraf -Bleeding Controlled with NA NA Pressure -Treatment Response Procedure Procedure Procedure Tolerated Well Tolerated Well Tolerated Well Pain Scale: 0-10 Numeric Is Patient Pain Free? Yes Yes Yes Wound debrided: left medial LE Laterality: Left Type of Debridement: Excisional debridement Anesthesia Used: 4% Lidocaine Solution Depth: Down to and including healthy tissue, in the subcutaneous layer Percentage of wound debrided: 100 Instrument Used: 7mm curette Tissue Removed: devitalized tissue, yellow slough Severity: Fat Layer Exposed Amount of bleeding with debridement: Mild Bleeding Controlled with: Compression and gauze Patient tolerated procedure well Assessment/Plan Active Problems Traumatic open wound of left lower leg (Chronic) hematoma drained spontaneously after being struck with piece of wood to gray Diabetes mellitus type 2, controlled (Chronic) Chronic anticoagulation (Chronic) Assessment: nonhealing wounds to left gray due to trauma and hematoma after being struck with a piece of wood Plan: Enrique's wound was evaluated and debrided today. Will have him continue to use Aquacel Ag as a primary dressing with adaptic and gauze. Will have him use tubigrip for compression. Puraply was denied. He ultimately may also benefit from treatment with an Apligraf if his healing is stalled. Encouraged tight glucose control. Elevation of his legs when possible. Increased protein intake to promote healing. F/U in 1 week.
== END 2018-03-15 23:59 ==
LOC: WC 14:15
PROVIDERS: PCP Family Medicine; Visit Provider Family Medicine
DX: S80.12XA Contusion of left lower leg, initial encounter (principal); W22.8XXA Striking against or struck by other objects, initial encounter; E11.65 Type 2 diabetes mellitus with hyperglycemia; Z79.01 Long term (current) use of anticoagulants; I48.91 Unspecified atrial fibrillation
CPT/HCPCS: 11042

== ENCOUNTER 2018-04-03 10:30 | Outpatient (RCR) | payer OTHER, SELFPAY ==
[2018-03-16 01:27] VITALS: BP 119/66; PULSE 80; RESP 16; TEMP 36.1
[2018-03-17 14:07] VITALS: BP 132/76; PULSE 78; RESP 18; TEMP 36.7
--- NOTE | 2018-03-17 17:22 | PCM.WC.PN ---
(1) Traumatic open wound of left lower leg Status: Chronic Current Visit: Yes Qualifiers: Encounter type: subsequent encounter Code(s): S81.802A - Unspecified open wound, left lower leg, initial encounter Comment: hematoma drained spontaneously after being struck with piece of wood to gray (2) Diabetes mellitus type 2, controlled Status: Chronic Current Visit: Yes Qualifiers: Diabetes mellitus detention insulin use: unspecified detention insulin use status Diabetes mellitus complication status: with unspecified complications Qualified Code(s): E11.8 - Type 2 diabetes mellitus with unspecified complications Code(s): E11.9 - Type 2 diabetes mellitus without complications (3) Chronic anticoagulation Status: Chronic Current Visit: Yes 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 Comer for a nonhealing wound of his left gray due to trauma with resultant hematoma. Enrique injured his leg on December 23, 2017 when a piece of wood dropped and struck his lower leg and he subsequently developed a hematoma due to his chronic anticoagulation with coumadin for A. fib. The skin over the hematoma sloughed off after he put hand consulting it architect over it and used a heating pad over it and subsequently the clot evacuated itself and he was left with an open wound. Since that time he was applying neosporin and gauze or using wet to dry dressings to the wound. He denies significant drainage, pain or erythema. INR on 01/02/18 was 3.1 Progress of Wound: Enrique returns for follow up of his nonhealing traumatic wound to his left gray. He tolerated dressings and does note decreased drainage from wound. Denies odor or erythema increasing. He has been tolerating tubigrip compression. Puraply application was denied by insurance. He has undergone 9 weeks of treatment and is still not healed. - Physical Exam Vital Signs Temp Pulse Resp BP 98.1 F 78 18 132/76 H 03/17/18 14:07 11/02/18 14:07 03/17/18 14:07 03/17/18 14:07 General: Alert, Oriented x3, Cooperative, No apparent distress HEENT: Atraumatic, Normocephalic Oral: Moist Mucosa Abdomen: Obese Extremities: Edema Skin: Ulcer/ Wound Wound Measurements and Assessment WC - Nurse 1 - General Ulcer Measurement Start: 03/17/18 14:07 Freq: Status: Active Protocol: Activity Type Activity Date Activity User E-Sign Co-Sign Detail Recorded Client Recorded Date Recorded By Document 03/17/18 14:07 AN [id number] 03/17/18 14:17 AN 03/17/18 14:07 Wound Center Nurse 1 [Ulcer Assessment] #1- LEFT MEDIAL LE -Current Size (cm) - Length 3.4 -Current Size (cm) - Width 4.7 -Current Size (cm) - Depth 0.1 -Total Square Cm 15.98 -Epithelialization None Present -Tunneling No -Undermining/Tunneling No -Classification - Thickness Full Thickness without Exposed Support Structure -Exudate Amt Medium (34-66%) -Exudate Type Serosanguineous -Wound Margin Distinct, Outline Attached -Granulation Amt Large (67-100%) -Granulation Quality Red -Slough/Fibrin Yes -Necrosis Amt Small (1-33%) -Necrotic Tissue Type Adherent Slough -Structure Exposed Fat Layer Exposed -Texture (Yessy-wound Skin Appearance) No Abnormality -Moisture (Yessy-wound Skin Appearance No Abnormality ) -Color (Yessy-wound Skin Appearance) No Abnormality -Temperature (Yessy-wound Skin No Abnormality Appearance) (Pt Warm) -Tenderness on Palpation (Yessy-wound No Skin Appearance) -Ulcer Cleansing Rinsed/ Irrigated with Saline -Foul Odor after Cleansing No -Anesthetic Used 4% Lidocaine Solution WC - Nurse 2 - General Ulcer CM Notes Start: 03/17/18 14:07 Freq: Status: Active Protocol: Activity Type Activity Date Activity User E-Sign Co-Sign Detail Recorded Client Recorded Date Recorded By Document 03/17/18 14:55 [id number] 03/17/18 15:02 03/17/18 14:55 Wound Center Nurse 2 [Procedure/Treatment] -Time 14:58 -Correct Patient Yes -Correct Side, Site, Position Yes -Correct Procedure Yes -Procedure Performed Yes -Type of Procedure Debridement -Clinical Debridement Subcutaneous -Post Debridement Size (cm) - Length 3.8 -Post Debridement Size (cm) - Width 2.4 -Post Debridement Size (cm) - Depth 0.1 -Total Square Cm 9.12 -Wound/Ulcer Outcome Not Healed -Ulcer Cleansing Not Cleansed -Foul Odor after Cleansing No -Bioengineered Tissue No -Bleeding Controlled with NA -Treatment Response Procedure Tolerated Well [See Physician Procedure note for Specifics] Pain Scale: 0-10 Numeric [Pain] -Is Patient Pain Free? Yes Psych/Mental Status: Normal Affect, Appropriate Debridement Note Post-Debridement Measurements/Treatment WC - Nurse 2 - General Ulcer CM Notes Start: 03/17/18 14:07 Freq: Status: Active Protocol: Activity Type Activity Date Activity User E-Sign Co-Sign Detail Recorded Client Recorded Date Recorded By Document 03/17/18 14:55 [id number] 03/17/18 15:02 03/17/18 14:55 Wound Center Nurse 2 #1- LEFT MEDIAL LE -Time 14:58 -Correct Patient Yes -Correct Side, Site, Position Yes -Correct Procedure Yes -Procedure Performed Yes -Type of Procedure Debridement -Clinical Debridement Subcutaneous -Post Debridement Size (cm) - Length 3.8 -Post Debridement Size (cm) - Width 2.4 -Post Debridement Size (cm) - Depth 0.1 -Total Square Cm 9.12 -Wound/Ulcer Outcome Not Healed -Ulcer Cleansing Not Cleansed -Foul Odor after Cleansing No -Bioengineered Tissue No -Bleeding Controlled with NA -Treatment Response Procedure Tolerated Well Pain Scale: 0-10 Numeric Is Patient Pain Free? Yes Wound debrided: left medial LE Laterality: Left Type of Debridement: Excisional debridement Anesthesia Used: 4% Lidocaine Solution Depth: Down to and including healthy tissue, in the subcutaneous layer Percentage of wound debrided: 100 Instrument Used: 7mm curette Tissue Removed: devitalized tissue, yellow slough Severity: Fat Layer Exposed Amount of bleeding with debridement: Mild Bleeding Controlled with: Compression and gauze Patient tolerated procedure well Assessment/Plan Active Problems Traumatic open wound of left lower leg (Chronic) hematoma drained spontaneously after being struck with piece of wood to gray Diabetes mellitus type 2, controlled (Chronic) Chronic anticoagulation (Chronic) Venous insufficiency of left leg (Chronic) Assessment: nonhealing wounds to left gray due to trauma and hematoma after being struck with a piece of wood, complicated by venous insufficiency and DM type 2 Plan: Enrique's wound was evaluated and debrided today. Will have him continue to use Aquacel Ag as a primary dressing with adaptic and gauze. Will have him use tubigrip for compression. At this point his progress has slowed and I feel he would benefit from treatment with an Apligraf to heal his wound. He has undergone 9 weeks of conservative wound treatment. Encouraged tight glucose control. Elevation of his legs when possible. Increased protein intake to promote healing. F/U in 1 week.
--- NOTE | 2018-03-17 17:26 | PN.PCM_ITS ---
(1) Traumatic open wound of left lower leg Status: Chronic Current Visit: Yes Qualifiers: Encounter type: subsequent encounter Code(s): S81.802A - Unspecified open wound, left lower leg, initial encounter Comment: hematoma drained spontaneously after being struck with piece of wood to gray (2) Diabetes mellitus type 2, controlled Status: Chronic Current Visit: Yes Qualifiers: Diabetes mellitus mcc insulin use: unspecified mcc insulin use status Diabetes mellitus complication status: with unspecified complications Qualified Code(s): E11.8 - Type 2 diabetes mellitus with unspecified complications Code(s): E11.9 - Type 2 diabetes mellitus without complications (3) Chronic anticoagulation Status: Chronic Current Visit: Yes Code(s): 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 Comer for a nonhealing wound of his left gray due to trauma with resultant hematoma. Enrique injured his leg on December 23, 2017 when a piece of wood dropped and struck his lower leg and he subsequently developed a hematoma due to his chronic anticoagulation with coumadin for A. fib. The skin over the hematoma sloughed off after he put hand tourist escort over it and used a heating pad over it and subsequently the clot evacuated itself and he was left with an open wound. Since that time he was applying neosporin and gauze or using wet to dry dressings to the wound. He denies significant drainage, pain or erythema. INR on 01/02/18 was 3.1 Progress of Wound: Enrique returns for follow up of his nonhealing traumatic wound to his left gray. He tolerated dressings and does note decreased drainage from wound. Denies odor or erythema increasing. He has been tolerating tubigrip compression. Puraply application was denied by insurance. He has undergone 9 weeks of treatment and is still not healed. - Physical Exam Vital Signs Temp Pulse Resp BP 98.1 F 78 18 132/76 H 03/17/18 14:07 11/02/18 14:07 03/17/18 14:07 03/17/18 14:07 General: Alert, Oriented x3, Cooperative, No apparent distress HEENT: Atraumatic, Normocephalic Oral: Moist Mucosa Abdomen: Obese Extremities: Edema Skin: Ulcer/ Wound Wound Measurements and Assessment WC - Nurse 1 - General Ulcer Measurement Start: 03/17/18 14:07 Freq: Status: Active Protocol: Activity Type Activity Date Activity User E-Sign Co-Sign Detail Recorded Client Recorded Date Recorded By Document 03/17/18 14:07 AN [id number] 03/17/18 14:17 AN 03/17/18 14:07 Wound Center Nurse 1 [Ulcer Assessment] #1- LEFT MEDIAL LE -Current Size (cm) - Length 3.4 -Current Size (cm) - Width 4.7 -Current Size (cm) - Depth 0.1 -Total Square Cm 15.98 -Epithelialization None Present -Tunneling No -Undermining/Tunneling No -Classification - Thickness Full Thickness without Exposed Support Structure -Exudate Amt Medium (34-66%) -Exudate Type Serosanguineous -Wound Margin Distinct, Outline Attached -Granulation Amt Large (67-100%) -Granulation Quality Red -Slough/Fibrin Yes -Necrosis Amt Small (1-33%) -Necrotic Tissue Type Adherent Slough -Structure Exposed Fat Layer Exposed -Texture (Yessy-wound Skin Appearance) No Abnormality -Moisture (Yessy-wound Skin Appearance No Abnormality ) -Color (Yessy-wound Skin Appearance) No Abnormality -Temperature (Yessy-wound Skin No Abnormality Appearance) (Pt Warm) -Tenderness on Palpation (Yessy-wound No Skin Appearance) -Ulcer Cleansing Rinsed/ Irrigated with Saline -Foul Odor after Cleansing No -Anesthetic Used 4% Lidocaine Solution WC - Nurse 2 - General Ulcer CM Notes Start: 03/17/18 14:07 Freq: Status: Active Protocol: Activity Type Activity Date Activity User E-Sign Co-Sign Detail Recorded Client Recorded Date Recorded By Document 03/17/18 14:55 [id number] 03/17/18 15:02 03/17/18 14:55 Wound Center Nurse 2 [Procedure/Treatment] -Time 14:58 -Correct Patient Yes -Correct Side, Site, Position Yes -Correct Procedure Yes -Procedure Performed Yes -Type of Procedure Debridement -Clinical Debridement Subcutaneous -Post Debridement Size (cm) - Length 3.8 -Post Debridement Size (cm) - Width 2.4 -Post Debridement Size (cm) - Depth 0.1 -Total Square Cm 9.12 -Wound/Ulcer Outcome Not Healed -Ulcer Cleansing Not Cleansed -Foul Odor after Cleansing No -Bioengineered Tissue No -Bleeding Controlled with NA -Treatment Response Procedure Tolerated Well [See Physician Procedure note for Specifics] Pain Scale: 0-10 Numeric [Pain] -Is Patient Pain Free? Yes Psych/Mental Status: Normal Affect, Appropriate Debridement Note Post-Debridement Measurements/Treatment WC - Nurse 2 - General Ulcer CM Notes Start: 03/17/18 14:07 Freq: Status: Active Protocol: Activity Type Activity Date Activity User E-Sign Co-Sign Detail Recorded Client Recorded Date Recorded By Document 03/17/18 14:55 [id number] 03/17/18 15:02 03/17/18 14:55 Wound Center Nurse 2 #1- LEFT MEDIAL LE -Time 14:58 -Correct Patient Yes -Correct Side, Site, Position Yes -Correct Procedure Yes -Procedure Performed Yes -Type of Procedure Debridement -Clinical Debridement Subcutaneous -Post Debridement Size (cm) - Length 3.8 -Post Debridement Size (cm) - Width 2.4 -Post Debridement Size (cm) - Depth 0.1 -Total Square Cm 9.12 -Wound/Ulcer Outcome Not Healed -Ulcer Cleansing Not Cleansed -Foul Odor after Cleansing No -Bioengineered Tissue No -Bleeding Controlled with NA -Treatment Response Procedure Tolerated Well Pain Scale: 0-10 Numeric Is Patient Pain Free? Yes Wound debrided: left medial LE Laterality: Left Type of Debridement: Excisional debridement Anesthesia Used: 4% Lidocaine Solution Depth: Down to and including healthy tissue, in the subcutaneous layer Percentage of wound debrided: 100 Instrument Used: 7mm curette Tissue Removed: devitalized tissue, yellow slough Severity: Fat Layer Exposed Amount of bleeding with debridement: Mild Bleeding Controlled with: Compression and gauze Patient tolerated procedure well Assessment/Plan Active Problems Traumatic open wound of left lower leg (Chronic) hematoma drained spontaneously after being struck with piece of wood to gray Diabetes mellitus type 2, controlled (Chronic) Chronic anticoagulation (Chronic) Venous insufficiency of left leg (Chronic) Assessment: nonhealing wounds to left gray due to trauma and hematoma after being struck with a piece of wood, complicated by venous insufficiency and DM type 2 Plan: Enrique's wound was evaluated and debrided today. Will have him continue to use Aquacel Ag as a primary dressing with adaptic and gauze. Will have him use tubigrip for compression. At this point his progress has slowed and I feel he would benefit from treatment with an Apligraf to heal his wound. He has undergone 9 weeks of conservative wound treatment. Encouraged tight glucose control. Elevation of his legs when possible. Increased protein intake to promote healing. F/U in 1 week.
[2018-03-24 14:15] VITALS: BP 140/61; PULSE 82; RESP 18; TEMP 36.8
--- NOTE | 2018-03-24 17:24 | PCM.WC.PN ---
(1) Traumatic open wound of left lower leg Status: Chronic Current Visit: Yes Qualifiers: Encounter type: subsequent encounter Code(s): S81.802A - Unspecified open wound, left lower leg, initial encounter Comment: hematoma drained spontaneously after being struck with piece of wood to gray (2) Diabetes mellitus type 2, controlled Status: Chronic Current Visit: Yes Qualifiers: Diabetes mellitus jail insulin use: unspecified jail insulin use status Diabetes mellitus complication status: with unspecified complications Qualified Code(s): E11.8 - Type 2 diabetes mellitus with unspecified complications Code(s): E11.9 - Type 2 diabetes mellitus without complications (3) Chronic anticoagulation Status: Chronic Current Visit: Yes Code(s): Z79.01 - skilled nursing (current) use of anticoagulants (4) Venous insufficiency of left leg Status: Chronic Current Visit: Yes Code(s): I87.2 - Venous insufficiency (chronic) (peripheral) Type of Wound Date of Service: 03/24/18 Chief Complaint: nonhealing wound to left gray due to trauma/hematoma s/p being struck with piece of wood to gray History of Wound: Enrique is a 72 yo male who is referred for treatment at the wound healing center by Dr. Comer for a nonhealing wound of his left gray due to trauma with resultant hematoma. Enrique injured his leg on December 23, 2017 when a piece of wood dropped and struck his lower leg and he subsequently developed a hematoma due to his chronic anticoagulation with coumadin for A. fib. The skin over the hematoma sloughed off after he put hand dance hall host/hostess over it and used a heating pad over it and subsequently the clot evacuated itself and he was left with an open wound. Since that time he was applying neosporin and gauze or using wet to dry dressings to the wound. He denies significant drainage, pain or erythema. INR on 01/02/18 was 3.1 Progress of Wound: Enrique returns for follow up of his nonhealing traumatic wound to his left gray. He tolerated dressings and does note decreased drainage from wound. Denies odor or erythema increasing. He has been tolerating tubigrip compression. Puraply application was denied by insurance. He has undergone 10 weeks of treatment and is still not healed. - Physical Exam Vital Signs Temp Pulse Resp BP 98.2 F 82 18 140/61 H 03/24/18 14:15 11/09/18 14:15 03/24/18 14:15 03/24/18 14:15 General: Alert, Oriented x3, Cooperative, No apparent distress HEENT: Atraumatic, Normocephalic Oral: Moist Mucosa Abdomen: Obese Extremities: Edema Skin: Ulcer/ Wound Wound Measurements and Assessment WC - Nurse 1 - General Ulcer Measurement Start: 03/17/18 14:07 Freq: Status: Active Protocol: Activity Type Activity Date Activity User E-Sign Co-Sign Detail Recorded Client Recorded Date Recorded By Document 03/24/18 14:15 [id number] 03/24/18 14:24 AN 03/24/18 14:15 Wound Center Nurse 1 [Ulcer Assessment] #1- LEFT MEDIAL LE -Combined with other wound No -Current Size (cm) - Length 3.0 -Current Size (cm) - Width 2.2 -Current Size (cm) - Depth 0.1 -Total Square Cm 6.60 -Epithelialization None Present -Tunneling No -Undermining/Tunneling No -Classification - Thickness Full Thickness without Exposed Support Structure -Exudate Amt Small (1-33%) -Exudate Type Sanguineous -Wound Margin Distinct, Outline Attached -Granulation Amt Large (67-100%) -Granulation Quality Red -Slough/Fibrin Yes -Necrosis Amt Small (1-33%) -Necrotic Tissue Type Adherent Slough -Structure Exposed Fat Layer Exposed -Texture (Yessy-wound Skin Appearance) No Abnormality -Moisture (Yessy-wound Skin Appearance No Abnormality ) -Color (Yessy-wound Skin Appearance) No Abnormality -Temperature (Yessy-wound Skin No Abnormality Appearance) (Pt Warm) -Tenderness on Palpation (Yessy-wound No Skin Appearance) -Ulcer Cleansing Rinsed/ Irrigated with Saline -Foul Odor after Cleansing No -Anesthetic Used 4% Lidocaine Solution WC - Nurse 2 - General Ulcer CM Notes Start: 03/17/18 14:07 Freq: Status: Active Protocol: Activity Type Activity Date Activity User E-Sign Co-Sign Detail Recorded Client Recorded Date Recorded By Document 03/24/18 15:20 [id number] 03/24/18 15:24 CS 03/24/18 15:20 Wound Center Nurse 2 [Procedure/Treatment] -Time 15:21 -Correct Patient Yes -Correct Side, Site, Position Yes -Correct Procedure Yes -Procedure Performed Yes -Type of Procedure Debridement -Clinical Debridement Subcutaneous -Post Debridement Size (cm) - Length 3.2 -Post Debridement Size (cm) - Width 2.4 -Post Debridement Size (cm) - Depth 0.1 -Total Square Cm 7.68 -Wound/Ulcer Outcome Not Healed -Ulcer Cleansing Not Cleansed -Foul Odor after Cleansing No -Bleeding Controlled with NA -Treatment Response Procedure Tolerated Well [See Physician Procedure note for Specifics] Pain Scale: 0-10 Numeric [Pain] -Is Patient Pain Free? Yes Psych/Mental Status: Normal Affect, Appropriate Debridement Note Post-Debridement Measurements/Treatment WC - Nurse 2 - General Ulcer CM Notes Start: 03/17/18 14:07 Freq: Status: Active Protocol: Activity Type Activity Date Activity User E-Sign Co-Sign Detail Recorded Client Recorded Date Recorded By Document 03/17/18 14:55 [id number] 03/17/18 15:02 CS Document 03/24/18 15:20 [id number] 03/24/18 15:24 CS 03/17/18 03/24/18 14:55 15:20 Wound Center Nurse 2 #1- LEFT MEDIAL LE -Time 14:58 15:21 -Correct Patient Yes Yes -Correct Side, Site, Position Yes Yes -Correct Procedure Yes Yes -Procedure Performed Yes Yes -Type of Procedure Debridement Debridement -Clinical Debridement Subcutaneous Subcutaneous -Post Debridement Size (cm) - Length 3.8 3.2 -Post Debridement Size (cm) - Width 2.4 2.4 -Post Debridement Size (cm) - Depth 0.1 0.1 -Total Square Cm 9.12 7.68 -Wound/Ulcer Outcome Not Healed Not Healed -Ulcer Cleansing Not Cleansed Not Cleansed -Foul Odor after Cleansing No No -Bioengineered Tissue No -Bleeding Controlled with NA NA -Treatment Response Procedure Procedure Tolerated Well Tolerated Well Pain Scale: 0-10 Numeric Is Patient Pain Free? Yes Yes Wound debrided: left medial LE Laterality: Left Type of Debridement: Excisional debridement Anesthesia Used: 4% Lidocaine Solution Depth: Down to and including healthy tissue, in the subcutaneous layer Percentage of wound debrided: 100 Instrument Used: 5mm curette Tissue Removed: devitalized tissue, yellow slough Severity: Fat Layer Exposed Amount of bleeding with debridement: Mild Bleeding Controlled with: Compression and gauze Patient tolerated procedure well Assessment/Plan Active Problems Traumatic open wound of left lower leg (Chronic) hematoma drained spontaneously after being struck with piece of wood to gray Diabetes mellitus type 2, controlled (Chronic) Chronic anticoagulation (Chronic) Venous insufficiency of left leg (Chronic) Assessment: nonhealing wounds to left gray due to trauma and hematoma after being struck with a piece of wood, complicated by venous insufficiency and DM type 2 Plan: Enrique's wound was evaluated and debrided today. Will have him continue to use Kathleen as a primary dressing with adaptic and gauze. Will have him use tubigrip for compression. Will add venous stasis pad. At this point his progress has slowed and I feel he would benefit from treatment with an Apligraf to heal his wound. He has undergone 10 weeks of conservative wound treatment. Encouraged tight glucose control. Elevation of his legs when possible. Increased protein intake to promote healing. F/U in 1 week.
[2018-03-31 13:50] VITALS: BP 144/73; PULSE 98; RESP 18; TEMP 36.6
--- NOTE | 2018-03-31 17:15 | PCM.WC.PN ---
(1) Traumatic open wound of left lower leg Status: Chronic Current Visit: Yes Qualifiers: Encounter type: subsequent encounter Code(s): S81.802A - Unspecified open wound, left lower leg, initial encounter Comment: hematoma drained spontaneously after being struck with piece of wood to gray (2) Diabetes mellitus type 2, controlled Status: Chronic Current Visit: Yes Qualifiers: Diabetes mellitus buttermaker insulin use: unspecified assisted insulin use status Diabetes mellitus complication status: with unspecified complications Qualified Code(s): E11.8 - Type 2 diabetes mellitus with unspecified complications Code(s): E11.9 - Type 2 diabetes mellitus without complications (3) Chronic anticoagulation Status: Chronic Current Visit: Yes Code(s): Z79.01 - long-term (current) use of anticoagulants (4) Venous insufficiency of left leg Status: Chronic Current Visit: Yes Code(s): I87.2 - Venous insufficiency (chronic) (peripheral) Type of Wound Date of Service: 03/31/18 Chief Complaint: nonhealing wound to left gray due to trauma/hematoma s/p being struck with piece of wood to gray History of Wound: Enrique is a 72 yo male who is referred for treatment at the wound healing center by Dr. oCmer for a nonhealing wound of his left gray due to trauma with resultant hematoma. Enrique injured his leg on December 23, 2017 when a piece of wood dropped and struck his lower leg and he subsequently developed a hematoma due to his chronic anticoagulation with coumadin for A. fib. The skin over the hematoma sloughed off after he put hand finance admin over it and used a heating pad over it and subsequently the clot evacuated itself and he was left with an open wound. Since that time he was applying neosporin and gauze or using wet to dry dressings to the wound. He denies significant drainage, pain or erythema. INR on 01/02/18 was 3.1 Progress of Wound: Enrique returns for follow up of his nonhealing traumatic wound to his left gray. He tolerated dressings and does note decreased drainage from wound. Denies odor or erythema increasing. His daughter applied Acell cellular matrix material and Enrique tolerated this well with mild improvement in his wound. He has been tolerating tubigrip compression. Puraply application was denied by insurance. He has undergone 10 weeks of treatment and is still not healed. - Physical Exam Vital Signs Temp Pulse Resp BP 97.8 F 98 18 144/73 H 03/31/18 13:50 03/31/18 13:50 03/31/18 13:50 03/31/18 13:50 General: Alert, Oriented x3, Cooperative, No apparent distress HEENT: Atraumatic, Normocephalic Oral: Moist Mucosa Abdomen: Obese Extremities: Edema Skin: Ulcer/ Wound Wound Measurements and Assessment WC - Nurse 1 - General Ulcer Measurement Start: 03/17/18 14:07 Freq: Status: Active Protocol: Activity Type Activity Date Activity User E-Sign Co-Sign Detail Recorded Client Recorded Date Recorded By Document 03/31/18 13:50 [facility] [id number] 03/31/18 13:54 [facility] 03/31/18 13:50 Wound Center Nurse 1 [Ulcer Assessment] #1- LEFT MEDIAL LE -Combined with other wound No -Current Size (cm) - Length 3.0 -Current Size (cm) - Width 2.5 -Current Size (cm) - Depth 0.1 -Total Square Cm 7.50 -Date of Last Picture (Recall this 03/31/18 field) -Photo Taken Yes -Tunneling No -Undermining/Tunneling No -Circular Undermining No -Exudate Amt Large (67-100%) -Exudate Type Serosanguineous -Wound Margin Distinct, Outline Attached -Granulation Amt Large (67-100%) -Granulation Quality Hyper- granulation Pale Red -Slough/Fibrin No -Necrosis Amt None Present (0 %) -Texture (Yessy-wound Skin Appearance) Scarring -Moisture (Yessy-wound Skin Appearance Assessed ) Maceration Dry/Scaly -Color (Yessy-wound Skin Appearance) Assessed Palor -Temperature (Yessy-wound Skin No Abnormality Appearance) (Pt Warm) -Tenderness on Palpation (Yessy-wound No Skin Appearance) -Ulcer Cleansing Rinsed/ Irrigated with Saline -Foul Odor after Cleansing No -Anesthetic Used 5% Lidocaine Gel [Edema Assessment] -Lower Limb Edema Present Yes -Left Calf (cm) 34 -Left Ankle (cm) 21.2 WC - Nurse 2 - General Ulcer CM Notes Start: 03/17/18 14:07 Freq: Status: Active Protocol: Activity Type Activity Date Activity User E-Sign Co-Sign Detail Recorded Client Recorded Date Recorded By Document 03/31/18 14:43 [id number] 03/31/18 14:45 03/31/18 14:43 Wound Center Nurse 2 [Procedure/Treatment] #1- LEFT MEDIAL LE -Time 14:44 -Correct Patient Yes -Correct Side, Site, Position Yes -Correct Procedure Yes -Procedure Performed Yes -Type of Procedure Debridement -Clinical Debridement Subcutaneous -Post Debridement Size (cm) - Length 2.4 -Post Debridement Size (cm) - Width 1.5 -Post Debridement Size (cm) - Depth 0.1 -Total Square Cm 3.60 -Wound/Ulcer Outcome Not Healed -Ulcer Cleansing Rinsed/ Irrigated with Saline -Foul Odor after Cleansing No -Bioengineered Tissue No -Bleeding Controlled with NA -Treatment Response Procedure Tolerated Well [See Physician Procedure note for Specifics] Pain Scale: 0-10 Numeric [Pain] -Is Patient Pain Free? Yes Psych/Mental Status: Normal Affect, Appropriate Debridement Note Post-Debridement Measurements/Treatment WC - Nurse 2 - General Ulcer CM Notes Start: 03/17/18 14:07 Freq: Status: Active Protocol: Activity Type Activity Date Activity User E-Sign Co-Sign Detail Recorded Client Recorded Date Recorded By Document 03/17/18 14:55 [id number] 03/17/18 15:02 CS Document 03/24/18 15:20 [id number] 03/24/18 15:24 CS Document 03/31/18 14:43 [id number] 03/31/18 14:45 03/17/18 03/24/18 03/31/18 14:55 15:20 14:43 Wound Center Nurse 2 #1- LEFT MEDIAL LE -Time 14:58 15:21 14:44 -Correct Patient Yes Yes Yes -Correct Side, Site, Position Yes Yes Yes -Correct Procedure Yes Yes Yes -Procedure Performed Yes Yes Yes -Type of Procedure Debridement Debridement Debridement -Clinical Debridement Subcutaneous Subcutaneous Subcutaneous -Post Debridement Size (cm) - Length 3.8 3.2 2.4 -Post Debridement Size (cm) - Width 2.4 2.4 1.5 -Post Debridement Size (cm) - Depth 0.1 0.1 0.1 -Total Square Cm 9.12 7.68 3.60 -Wound/Ulcer Outcome Not Healed Not Healed Not Healed -Ulcer Cleansing Not Cleansed Not Cleansed Rinsed/ Irrigated with Saline -Foul Odor after Cleansing No No No -Bioengineered Tissue No No -Bleeding Controlled with NA NA NA -Treatment Response Procedure Procedure Procedure Tolerated Well Tolerated Well Tolerated Well Pain Scale: 0-10 Numeric Is Patient Pain Free? Yes Yes Yes Wound debrided: left medial LE Laterality: Left Type of Debridement: Excisional debridement Anesthesia Used: 4% Lidocaine Solution Depth: Down to and including healthy tissue, in the subcutaneous layer Percentage of wound debrided: 100 Instrument Used: 7mm curette Tissue Removed: yellow slough, devitalized tissue Severity: Fat Layer Exposed Amount of bleeding with debridement: Mild Bleeding Controlled with: Compression and gauze Patient tolerated procedure well Assessment/Plan Active Problems Traumatic open wound of left lower leg (Chronic) hematoma drained spontaneously after being struck with piece of wood to gray Diabetes mellitus type 2, controlled (Chronic) Chronic anticoagulation (Chronic) Venous insufficiency of left leg (Chronic) Assessment: nonhealing wounds to left gray due to trauma and hematoma after being struck with a piece of wood, complicated by venous insufficiency and DM type 2 Plan: Enrique's wound was evaluated and debrided today. Will have him continue to use Kathleen as a primary dressing with adaptic and gauze. Will have him use tubigrip for compression with venous stasis pad. At this point his progress has slowed and I feel he would benefit from treatment with an Apligraf to heal his wound. This was approved but was unavailable to apply today. I am going to have him return next week to have this applied by another panel provider in my absence. He has undergone 10 weeks of conservative wound treatment. Encouraged tight glucose control. Elevation of his legs when possible. Increased protein intake to promote healing. F/U in 1 week with another panel provider and [address] Garcia.
--- NOTE | 2018-03-31 17:19 | PN.PCM_ITS ---
(1) Traumatic open wound of left lower leg Status: Chronic Current Visit: Yes Qualifiers: Encounter type: subsequent encounter Code(s): S81.802A - Unspecified open wound, left lower leg, initial encounter Comment: hematoma drained spontaneously after being struck with piece of wood to gray (2) Diabetes mellitus type 2, controlled Status: Chronic Current Visit: Yes Qualifiers: Diabetes mellitus manager intermediate insulin use: unspecified retirement insulin use status Diabetes mellitus complication status: with unspecified complications Qualified Code(s): E11.8 - Type 2 diabetes mellitus with unspecified complications Code(s): E11.9 - Type 2 diabetes mellitus without complications (3) Chronic anticoagulation Status: Chronic Current Visit: Yes Code(s): Z79.01 - [facility] (current) use of anticoagulants (4) Venous insufficiency of left leg Status: Chronic Current Visit: Yes Code(s): I87.2 - Venous insufficiency (chronic) (peripheral) Type of Wound Date of Service: 03/31/18 Chief Complaint: nonhealing wound to left gray due to trauma/hematoma s/p being struck with piece of wood to gray History of Wound: Enrique is a 72 yo male who is referred for treatment at the wound healing center by Dr. Comer for a nonhealing wound of his left gray due to trauma with resultant hematoma. Enrique injured his leg on December 23, 2017 when a piece of wood dropped and struck his lower leg and he subsequently developed a hematoma due to his chronic anticoagulation with coumadin for A. fib. The skin over the hematoma sloughed off after he put hand healthcare manager over it and used a heating pad over it and subsequently the clot evacuated itself and he was left with an open wound. Since that time he was applying neosporin and gauze or using wet to dry dressings to the wound. He denies significant drainage, pain or erythema. INR on 01/02/18 was 3.1 Progress of Wound: Enrique returns for follow up of his nonhealing traumatic wound to his left gray. He tolerated dressings and does note decreased drainage from wound. Denies odor or erythema increasing. His daughter applied Acell cellular matrix material and Enrique tolerated this well with mild improvement in his wound. He has been tolerating tubigrip compression. Puraply application was denied by insurance. He has undergone 10 weeks of treatment and is still not healed. - Physical Exam Vital Signs Temp Pulse Resp BP 97.8 F 98 18 144/73 H 03/31/18 13:50 03/31/18 13:50 03/31/18 13:50 03/31/18 13:50 General: Alert, Oriented x3, Cooperative, No apparent distress HEENT: Atraumatic, Normocephalic Oral: Moist Mucosa Abdomen: Obese Extremities: Edema Skin: Ulcer/ Wound Wound Measurements and Assessment WC - Nurse 1 - General Ulcer Measurement Start: 03/17/18 14:07 Freq: Status: Active Protocol: Activity Type Activity Date Activity User E-Sign Co-Sign Detail Recorded Client Recorded Date Recorded By Document 03/31/18 13:50 [facility] [id number] 03/31/18 13:54 [facility] 03/31/18 13:50 Wound Center Nurse 1 [Ulcer Assessment] #1- LEFT MEDIAL LE -Combined with other wound No -Current Size (cm) - Length 3.0 -Current Size (cm) - Width 2.5 -Current Size (cm) - Depth 0.1 -Total Square Cm 7.50 -Date of Last Picture (Recall this 03/31/18 field) -Photo Taken Yes -Tunneling No -Undermining/Tunneling No -Circular Undermining No -Exudate Amt Large (67-100%) -Exudate Type Serosanguineous -Wound Margin Distinct, Outline Attached -Granulation Amt Large (67-100%) -Granulation Quality Hyper- granulation Pale Red -Slough/Fibrin No -Necrosis Amt None Present (0 %) -Texture (Yessy-wound Skin Appearance) Scarring -Moisture (Yessy-wound Skin Appearance Assessed ) Maceration Dry/Scaly -Color (Yessy-wound Skin Appearance) Assessed Palor -Temperature (Yessy-wound Skin No Abnormality Appearance) (Pt Warm) -Tenderness on Palpation (Yessy-wound No Skin Appearance) -Ulcer Cleansing Rinsed/ Irrigated with Saline -Foul Odor after Cleansing No -Anesthetic Used 5% Lidocaine Gel [Edema Assessment] -Lower Limb Edema Present Yes -Left Calf (cm) 34 -Left Ankle (cm) 21.2 WC - Nurse 2 - General Ulcer CM Notes Start: 03/17/18 14:07 Freq: Status: Active Protocol: Activity Type Activity Date Activity User E-Sign Co-Sign Detail Recorded Client Recorded Date Recorded By Document 03/31/18 14:43 [id number] 03/31/18 14:45 03/31/18 14:43 Wound Center Nurse 2 [Procedure/Treatment] #1- LEFT MEDIAL LE -Time 14:44 -Correct Patient Yes -Correct Side, Site, Position Yes -Correct Procedure Yes -Procedure Performed Yes -Type of Procedure Debridement -Clinical Debridement Subcutaneous -Post Debridement Size (cm) - Length 2.4 -Post Debridement Size (cm) - Width 1.5 -Post Debridement Size (cm) - Depth 0.1 -Total Square Cm 3.60 -Wound/Ulcer Outcome Not Healed -Ulcer Cleansing Rinsed/ Irrigated with Saline -Foul Odor after Cleansing No -Bioengineered Tissue No -Bleeding Controlled with NA -Treatment Response Procedure Tolerated Well [See Physician Procedure note for Specifics] Pain Scale: 0-10 Numeric [Pain] -Is Patient Pain Free? Yes Psych/Mental Status: Normal Affect, Appropriate Debridement Note Post-Debridement Measurements/Treatment WC - Nurse 2 - General Ulcer CM Notes Start: 03/17/18 14:07 Freq: Status: Active Protocol: Activity Type Activity Date Activity User E-Sign Co-Sign Detail Recorded Client Recorded Date Recorded By Document 03/17/18 14:55 [id number] 03/17/18 15:02 CS Document 03/24/18 15:20 [id number] 03/24/18 15:24 CS Document 03/31/18 14:43 [id number] 03/31/18 14:45 03/17/18 03/24/18 03/31/18 14:55 15:20 14:43 Wound Center Nurse 2 #1- LEFT MEDIAL LE -Time 14:58 15:21 14:44 -Correct Patient Yes Yes Yes -Correct Side, Site, Position Yes Yes Yes -Correct Procedure Yes Yes Yes -Procedure Performed Yes Yes Yes -Type of Procedure Debridement Debridement Debridement -Clinical Debridement Subcutaneous Subcutaneous Subcutaneous -Post Debridement Size (cm) - Length 3.8 3.2 2.4 -Post Debridement Size (cm) - Width 2.4 2.4 1.5 -Post Debridement Size (cm) - Depth 0.1 0.1 0.1 -Total Square Cm 9.12 7.68 3.60 -Wound/Ulcer Outcome Not Healed Not Healed Not Healed -Ulcer Cleansing Not Cleansed Not Cleansed Rinsed/ Irrigated with Saline -Foul Odor after Cleansing No No No -Bioengineered Tissue No No -Bleeding Controlled with NA NA NA -Treatment Response Procedure Procedure Procedure Tolerated Well Tolerated Well Tolerated Well Pain Scale: 0-10 Numeric Is Patient Pain Free? Yes Yes Yes Wound debrided: left medial LE Laterality: Left Type of Debridement: Excisional debridement Anesthesia Used: 4% Lidocaine Solution Depth: Down to and including healthy tissue, in the subcutaneous layer Percentage of wound debrided: 100 Instrument Used: 7mm curette Tissue Removed: yellow slough, devitalized tissue Severity: Fat Layer Exposed Amount of bleeding with debridement: Mild Bleeding Controlled with: Compression and gauze Patient tolerated procedure well Assessment/Plan Active Problems Traumatic open wound of left lower leg (Chronic) hematoma drained spontaneously after being struck with piece of wood to gray Diabetes mellitus type 2, controlled (Chronic) Chronic anticoagulation (Chronic) Venous insufficiency of left leg (Chronic) Assessment: nonhealing wounds to left gray due to trauma and hematoma after being struck with a piece of wood, complicated by venous insufficiency and DM type 2 Plan: Enrique's wound was evaluated and debrided today. Will have him continue to use Kathleen as a primary dressing with adaptic and gauze. Will have him use tubigrip for compression with venous stasis pad. At this point his progress has slowed and I feel he would benefit from treatment with an Apligraf to heal his wound. This was approved but was unavailable to apply today. I am going to have him return next week to have this applied by another panel provider in my absence. He has undergone 10 weeks of conservative wound treatment. Encouraged tight glucose control. Elevation of his legs when possible. Increased protein intake to promote healing. F/U in 1 week with another panel provider and [address] Garcia.
[2018-04-03 10:00] VITALS: BP 148/50; PULSE 90; RESP 18; TEMP 36.6
--- NOTE | 2018-04-03 11:32 | PCM.WC.PN ---
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 status Diabetes mellitus complication status: with unspecified complications Qualified Code(s): E11.8 - Type 2 diabetes mellitus with unspecified complications Code(s): E11.9 - Type 2 diabetes mellitus without complications (4) Venous insufficiency of left leg Status: Chronic Current Visit: Yes Code(s): I87.2 - Venous insufficiency (chronic) (peripheral) (5) Atrial fibrillation Status: Chronic Current Visit: No Qualifiers: Atrial fibrillation type: chronic Qualified Code(s): I48.2 - Chronic atrial fibrillation Code(s): I48.91 - Unspecified atrial fibrillation (6) Hyperlipidemia Status: Chronic Current Visit: No Qualifiers: Hyperlipidemia type: unspecified Qualified Code(s): E78.5 - Hyperlipidemia, unspecified Code(s): E78.5 - Hyperlipidemia, unspecified (7) Hypertension Status: Chronic Current Visit: No Qualifiers: Hypertension type: essential hypertension Qualified Code(s): I10 - Essential (primary) hypertension Code(s): I10 - Essential (primary) hypertension Type of Wound Date of Service: 04/03/18 Chief Complaint: nonhealing wound to left gray due to trauma/hematoma s/p being struck with piece of wood to gray History of Wound: Enrique is a 72 yo male who is referred for treatment at the wound healing center by Dr. Comer for a nonhealing wound of his left gray due to trauma with resultant hematoma. Enrique injured his leg on December 23, 2017 when a piece of wood dropped and struck his lower leg and he subsequently developed a hematoma due to his chronic anticoagulation with coumadin for A. fib. The skin over the hematoma sloughed off after he put hand central supply supervisor over it and used a heating pad over it and subsequently the clot evacuated itself and he was left with an open wound. Since that time he was applying neosporin and gauze or using wet to dry dressings to the wound. He denies significant drainage, pain or erythema. INR on 01/02/18 was 3.1 Progress of Wound: Enrique returns for follow up of his nonhealing traumatic wound to his left gray. He tolerated dressings and does note decreased drainage from wound. Denies odor or erythema increasing. His daughter applied Acell cellular matrix material and Enrique tolerated this well with mild improvement in his wound. He has been tolerating tubigrip compression. Puraply application was denied by insurance. He has undergone 10 weeks of treatment and is still not healed. Courtesy visit for Dr. Garcia today was his first application of apligraf that was approved. His wound is stable without any signs of infection at this time. - Physical Exam Vital Signs Temp Pulse Resp BP 97.8 F 90 18 148/50 H 04/03/18 10:00 04/03/18 10:00 04/03/18 10:00 04/03/18 10:00 General: Alert, Oriented x3, Cooperative, No apparent distress HEENT: Atraumatic Oral: Moist Mucosa Lungs: Clear to auscultation Cardiovascular: Regular rate Extremities: No clubbing, No cyanosis, Edema - Generalized bilateral lower extremity edema, Peripheral Pulses Normal Skin: Ulcer/ Wound - Wound present to left anterior lower extremity with adherent slough, no signs of infection at this time. Wound Measurements and Assessment WC - Nurse 1 - General Ulcer Measurement Start: 03/17/18 14:07 Freq: Status: Active Protocol: Activity Type Activity Date Activity User E-Sign Co-Sign Detail Recorded Client Recorded Date Recorded By Document 04/03/18 10:00 VT [id number] 04/03/18 10:05 VT 04/03/18 10:00 Wound Center Nurse 1 [Ulcer Assessment] #1- LEFT MEDIAL LE -Combined with other wound No -Current Size (cm) - Length 2.5 -Current Size (cm) - Width 2 -Current Size (cm) - Depth 0.1 -Total Square Cm 5.0 -Photo Taken No -Tunneling No -Undermining/Tunneling No -Circular Undermining No -Exudate Amt Small (1-33%) -Exudate Type Serosanguineous -Wound Margin Flat & Intact -Granulation Amt Large (67-100%) -Granulation Quality Red -Slough/Fibrin No -Texture (Yessy-wound Skin Appearance) Assessed -Moisture (Yessy-wound Skin Appearance Assessed ) Maceration -Color (Yessy-wound Skin Appearance) Assessed -Temperature (Yessy-wound Skin No Abnormality Appearance) (Pt Warm) -Tenderness on Palpation (Yessy-wound No Skin Appearance) -Ulcer Cleansing Rinsed/ Irrigated with Saline -Foul Odor after Cleansing No -Anesthetic Used 4% Lidocaine Solution [Edema Assessment] -Lower Limb Edema Present Yes -Left Calf (cm) 33.5 -Left Ankle (cm) 21.2 - Nurse 2 - General Ulcer CM Notes Start: 03/17/18 14:07 Freq: Status: Active Protocol: Activity Type Activity Date Activity User E-Sign Co-Sign Detail Recorded Client Recorded Date Recorded By Document 04/03/18 10:48 DV [id number] 04/03/18 10:51 DV 04/03/18 10:48 Wound Center Nurse 2 [Procedure/Treatment] #1- LEFT MEDIAL LE -Time 10:48 -Correct Patient Yes -Correct Side, Site, Position Yes -Correct Procedure Yes -Procedure Performed Yes -Type of Procedure Debridement -Clinical Debridement Subcutaneous -Post Debridement Size (cm) - Length 2.5 -Post Debridement Size (cm) - Width 2.0 -Post Debridement Size (cm) - Depth 0.1 -Total Square Cm 5.00 -Wound/Ulcer Outcome Not Healed -Ulcer Cleansing Rinsed/ Irrigated with Saline -Foul Odor after Cleansing No -Bioengineered Tissue Yes -Type of bioengineered Tissue Apligraf -Expiration Date 04/14/18 -Product Lot Number [id number] -Percent Used 100 -Topical Lidocaine (%) 4 -Bleeding Controlled with Pressure -Treatment Response Procedure Tolerated Well [See Physician Procedure note for Specifics] Pain Scale: 0-10 Numeric [Pain] -Is Patient Pain Free? Yes Neurological: Neuro grossly intact Psych/Mental Status: Normal Affect, Appropriate, Alert and oriented to time, place, person, mood and affect Debridement Note Post-Debridement Measurements/Treatment - Nurse 2 - General Ulcer CM Notes Start: 03/17/18 14:07 Freq: Status: Active Protocol: Activity Type Activity Date Activity User E-Sign Co-Sign Detail Recorded Client Recorded Date Recorded By Document 03/17/18 14:55 [id number] 03/17/18 15:02 CS Document 03/24/18 15:20 CS [id number] 03/24/18 15:24 CS Document 03/31/18 14:43 CS [id number] 03/31/18 14:45 CS Document 04/03/18 10:48 DV [id number] 04/03/18 10:51 DV 03/17/18 03/24/18 03/31/18 14:55 15:20 14:43 Wound Center Nurse 2 #1- LEFT MEDIAL LE -Time 14:58 15:21 14:44 -Correct Patient Yes Yes Yes -Correct Side, Site, Position Yes Yes Yes -Correct Procedure Yes Yes Yes -Procedure Performed Yes Yes Yes -Type of Procedure Debridement Debridement Debridement -Clinical Debridement Subcutaneous Subcutaneous Subcutaneous -Post Debridement Size (cm) - Length 3.8 3.2 2.4 -Post Debridement Size (cm) - Width 2.4 2.4 1.5 -Post Debridement Size (cm) - Depth 0.1 0.1 0.1 -Total Square Cm 9.12 7.68 3.60 -Wound/Ulcer Outcome Not Healed Not Healed Not Healed -Ulcer Cleansing Not Cleansed Not Cleansed Rinsed/ Irrigated with Saline -Foul Odor after Cleansing No No No -Bioengineered Tissue No No -Type of bioengineered Tissue -Expiration Date -Product Lot Number -Percent Used -Topical Lidocaine (%) -Bleeding Controlled with NA NA NA -Treatment Response Procedure Procedure Procedure Tolerated Well Tolerated Well Tolerated Well Pain Scale: 0-10 Numeric Is Patient Pain Free? Yes Yes Yes 04/03/18 10:48 Wound Center Nurse 2 #1- LEFT MEDIAL LE -Time 10:48 -Correct Patient Yes -Correct Side, Site, Position Yes -Correct Procedure Yes -Procedure Performed Yes -Type of Procedure Debridement -Clinical Debridement Subcutaneous -Post Debridement Size (cm) - Length 2.5 -Post Debridement Size (cm) - Width 2.0 -Post Debridement Size (cm) - Depth 0.1 -Total Square Cm 5.00 -Wound/Ulcer Outcome Not Healed -Ulcer Cleansing Rinsed/ Irrigated with Saline -Foul Odor after Cleansing No -Bioengineered Tissue Yes -Type of bioengineered Tissue Apligraf -Expiration Date 04/14/18 -Product Lot Number [id number] -Percent Used 100 -Topical Lidocaine (%) 4 -Bleeding Controlled with Pressure -Treatment Response Procedure Tolerated Well Pain Scale: 0-10 Numeric Is Patient Pain Free? Yes Wound debrided: Wound to left anterior lower extremity status post traumatic hematoma Laterality: Left Type of Debridement: Excisional debridement Anesthesia Used: 5% Lidocaine Gel Depth: in the subcutaneous layer Percentage of wound debrided: 100 Instrument Used: 5mm curette Tissue Removed: Slough and devitalized tissue Severity: Fat Layer Exposed Amount of bleeding with debridement: Mild Bleeding Controlled with: Pressure Patient tolerated procedure well Assessment/Plan Active Problems Traumatic open wound of left lower leg (Chronic) hematoma drained spontaneously after being struck with piece of wood to gray Diabetes mellitus type 2, controlled (Chronic) Chronic anticoagulation (Chronic) Venous insufficiency of left leg (Chronic) Assessment: nonhealing wounds to left gray due to trauma and hematoma after being struck with a piece of wood, complicated by venous insufficiency and DM type 2 Plan: Enrique's wound was evaluated and debrided today. His wound care will consist of first Apligraf application was performed today and secured with wound veil and Steri-Strips, 100% of the product was used and patient tolerated well. He has undergone 10 weeks of conservative wound treatment. Encouraged tight glucose control. Elevation of his legs when possible. Increased protein intake to promote healing. F/U in [address] Garcia. Code Visit 150xxx-152xx: [id number] Skin sub graft trnk/arm/leg
--- NOTE | 2018-04-05 11:37 | PN.PCM_ITS ---
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 (3) Diabetes mellitus type 2, controlled Status: Chronic Current Visit: Yes Qualifiers: Diabetes mellitus fci insulin use: unspecified meterman insulin use status Diabetes mellitus complication status: with unspecified complications Qualified Code(s): E11.8 - Type 2 diabetes mellitus with unspecified complications Code(s): E11.9 - Type 2 diabetes mellitus without complications (4) Venous insufficiency of left leg Status: Chronic Current Visit: Yes Code(s): I87.2 - Venous insufficiency (chronic) (peripheral) (5) Atrial fibrillation Status: Chronic Current Visit: No Qualifiers: Atrial fibrillation type: chronic Qualified Code(s): I48.2 - Chronic atrial fibrillation Code(s): I48.91 - Unspecified atrial fibrillation (6) Hyperlipidemia Status: Chronic Current Visit: No Qualifiers: Hyperlipidemia type: unspecified Qualified Code(s): E78.5 - Hyperlipidemia, unspecified Code(s): E78.5 - Hyperlipidemia, unspecified (7) Hypertension Status: Chronic Current Visit: No Qualifiers: Hypertension type: essential hypertension Qualified Code(s): I10 - Essential (primary) hypertension Code(s): I10 - Essential (primary) hypertension Type of Wound Date of Service: 04/03/18 Chief Complaint: nonhealing wound to left gray due to trauma/hematoma s/p being struck with piece of wood to gray History of Wound: Enrique is a 72 yo male who is referred for treatment at the wound healing center by Dr. Comer for a nonhealing wound of his left gray due to trauma with resultant hematoma. Enrique injured his leg on December 23, 2017 when a piece of wood dropped and struck his lower leg and he subsequently developed a hematoma due to his chronic anticoagulation with coumadin for A. fib. The skin over the hematoma sloughed off after he put hand director state pharmacy over it and used a heating pad over it and subsequently the clot evacuated itself and he was left with an open wound. Since that time he was applying neosporin and gauze or using wet to dry dressings to the wound. He denies significant drainage, pain or erythema. INR on 01/02/18 was 3.1 Progress of Wound: Enrique returns for follow up of his nonhealing traumatic wound to his left gray. He tolerated dressings and does note decreased drainage from wound. Denies odor or erythema increasing. His daughter applied Acell cellular matrix material and Enrique tolerated this well with mild improvement in his wound. He has been tolerating tubigrip compression. Puraply application was denied by insurance. He has undergone 10 weeks of treatment and is still not healed. Courtesy visit for Dr. Garcia today was his first application of apligraf that was approved. His wound is stable without any signs of infection at this time. - Physical Exam Vital Signs Temp Pulse Resp BP 97.8 F 90 18 148/50 H 04/03/18 10:00 04/03/18 10:00 04/03/18 10:00 04/03/18 10:00 General: Alert, Oriented x3, Cooperative, No apparent distress HEENT: Atraumatic Oral: Moist Mucosa Lungs: Clear to auscultation Cardiovascular: Regular rate Extremities: No clubbing, No cyanosis, Edema - Generalized bilateral lower extremity edema, Peripheral Pulses Normal Skin: Ulcer/ Wound - Wound present to left anterior lower extremity with adherent slough, no signs of infection at this time. Wound Measurements and Assessment WC - Nurse 1 - General Ulcer Measurement Start: 03/17/18 14:07 Freq: Status: Active Protocol: Activity Type Activity Date Activity User E-Sign Co-Sign Detail Recorded Client Recorded Date Recorded By Document 04/03/18 10:00 ND [id number] 04/03/18 10:05 ND 04/03/18 10:00 Wound Center Nurse 1 [Ulcer Assessment] #1- LEFT MEDIAL LE -Combined with other wound No -Current Size (cm) - Length 2.5 -Current Size (cm) - Width 2 -Current Size (cm) - Depth 0.1 -Total Square Cm 5.0 -Photo Taken No -Tunneling No -Undermining/Tunneling No -Circular Undermining No -Exudate Amt Small (1-33%) -Exudate Type Serosanguineous -Wound Margin Flat & Intact -Granulation Amt Large (67-100%) -Granulation Quality Red -Slough/Fibrin No -Texture (Yessy-wound Skin Appearance) Assessed -Moisture (Yessy-wound Skin Appearance Assessed ) Maceration -Color (Yessy-wound Skin Appearance) Assessed -Temperature (Yessy-wound Skin No Abnormality Appearance) (Pt Warm) -Tenderness on Palpation (Yessy-wound No Skin Appearance) -Ulcer Cleansing Rinsed/ Irrigated with Saline -Foul Odor after Cleansing No -Anesthetic Used 4% Lidocaine Solution [Edema Assessment] -Lower Limb Edema Present Yes -Left Calf (cm) 33.5 -Left Ankle (cm) 21.2 - Nurse 2 - General Ulcer CM Notes Start: 03/17/18 14:07 Freq: Status: Active Protocol: Activity Type Activity Date Activity User E-Sign Co-Sign Detail Recorded Client Recorded Date Recorded By Document 04/03/18 10:48 DV [id number] 04/03/18 10:51 DV 04/03/18 10:48 Wound Center Nurse 2 [Procedure/Treatment] #1- LEFT MEDIAL LE -Time 10:48 -Correct Patient Yes -Correct Side, Site, Position Yes -Correct Procedure Yes -Procedure Performed Yes -Type of Procedure Debridement -Clinical Debridement Subcutaneous -Post Debridement Size (cm) - Length 2.5 -Post Debridement Size (cm) - Width 2.0 -Post Debridement Size (cm) - Depth 0.1 -Total Square Cm 5.00 -Wound/Ulcer Outcome Not Healed -Ulcer Cleansing Rinsed/ Irrigated with Saline -Foul Odor after Cleansing No -Bioengineered Tissue Yes -Type of bioengineered Tissue Apligraf -Expiration Date 04/14/18 -Product Lot Number [id number] -Percent Used 100 -Topical Lidocaine (%) 4 -Bleeding Controlled with Pressure -Treatment Response Procedure Tolerated Well [See Physician Procedure note for Specifics] Pain Scale: 0-10 Numeric [Pain] -Is Patient Pain Free? Yes Neurological: Neuro grossly intact Psych/Mental Status: Normal Affect, Appropriate, Alert and oriented to time, place, person, mood and affect Debridement Note Post-Debridement Measurements/Treatment - Nurse 2 - General Ulcer CM Notes Start: 03/17/18 14:07 Freq: Status: Active Protocol: Activity Type Activity Date Activity User E-Sign Co-Sign Detail Recorded Client Recorded Date Recorded By Document 03/17/18 14:55 [id number] 03/17/18 15:02 CS Document 03/24/18 15:20 CS [id number] 03/24/18 15:24 CS Document 03/31/18 14:43 CS [id number] 03/31/18 14:45 CS Document 04/03/18 10:48 DV [id number] 04/03/18 10:51 DV 03/17/18 03/24/18 03/31/18 14:55 15:20 14:43 Wound Center Nurse 2 #1- LEFT MEDIAL LE -Time 14:58 15:21 14:44 -Correct Patient Yes Yes Yes -Correct Side, Site, Position Yes Yes Yes -Correct Procedure Yes Yes Yes -Procedure Performed Yes Yes Yes -Type of Procedure Debridement Debridement Debridement -Clinical Debridement Subcutaneous Subcutaneous Subcutaneous -Post Debridement Size (cm) - Length 3.8 3.2 2.4 -Post Debridement Size (cm) - Width 2.4 2.4 1.5 -Post Debridement Size (cm) - Depth 0.1 0.1 0.1 -Total Square Cm 9.12 7.68 3.60 -Wound/Ulcer Outcome Not Healed Not Healed Not Healed -Ulcer Cleansing Not Cleansed Not Cleansed Rinsed/ Irrigated with Saline -Foul Odor after Cleansing No No No -Bioengineered Tissue No No -Type of bioengineered Tissue -Expiration Date -Product Lot Number -Percent Used -Topical Lidocaine (%) -Bleeding Controlled with NA NA NA -Treatment Response Procedure Procedure Procedure Tolerated Well Tolerated Well Tolerated Well Pain Scale: 0-10 Numeric Is Patient Pain Free? Yes Yes Yes 04/03/18 10:48 Wound Center Nurse 2 #1- LEFT MEDIAL LE -Time 10:48 -Correct Patient Yes -Correct Side, Site, Position Yes -Correct Procedure Yes -Procedure Performed Yes -Type of Procedure Debridement -Clinical Debridement Subcutaneous -Post Debridement Size (cm) - Length 2.5 -Post Debridement Size (cm) - Width 2.0 -Post Debridement Size (cm) - Depth 0.1 -Total Square Cm 5.00 -Wound/Ulcer Outcome Not Healed -Ulcer Cleansing Rinsed/ Irrigated with Saline -Foul Odor after Cleansing No -Bioengineered Tissue Yes -Type of bioengineered Tissue Apligraf -Expiration Date 04/14/18 -Product Lot Number [id number] -Percent Used 100 -Topical Lidocaine (%) 4 -Bleeding Controlled with Pressure -Treatment Response Procedure Tolerated Well Pain Scale: 0-10 Numeric Is Patient Pain Free? Yes Wound debrided: Wound to left anterior lower extremity status post traumatic hematoma Laterality: Left Type of Debridement: Excisional debridement Anesthesia Used: 5% Lidocaine Gel Depth: in the subcutaneous layer Percentage of wound debrided: 100 Instrument Used: 5mm curette Tissue Removed: Slough and devitalized tissue Severity: Fat Layer Exposed Amount of bleeding with debridement: Mild Bleeding Controlled with: Pressure Patient tolerated procedure well Assessment/Plan Active Problems Traumatic open wound of left lower leg (Chronic) hematoma drained spontaneously after being struck with piece of wood to gray Diabetes mellitus type 2, controlled (Chronic) Chronic anticoagulation (Chronic) Venous insufficiency of left leg (Chronic) Assessment: nonhealing wounds to left gray due to trauma and hematoma after being struck with a piece of wood, complicated by venous insufficiency and DM type 2 Plan: Enrique's wound was evaluated and debrided today. His wound care will consist of first Apligraf application was performed today and secured with wound veil and Steri-Strips, 100% of the product was used and patient tolerated well. He has undergone 10 weeks of conservative wound treatment. Encouraged tight glucose control. Elevation of his legs when possible. Increased protein intake to promote healing. F/U in [address] Garcia. Code Visit 150xxx-152xx: [id number] Skin sub graft trnk/arm/leg
[2018-04-14 14:58] VITALS: BP 143/64; PULSE 94; RESP 16; TEMP 36.6
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
== END 2018-04-14 23:59 ==
LOC: WC 10:30
PROVIDERS: PCP Family Medicine; Visit Provider Family Medicine
DX: S80.12XA Contusion of left lower leg, initial encounter (principal); W22.8XXA Striking against or struck by other objects, initial encounter; E11.9 Type 2 diabetes mellitus without complications; Z79.01 Long term (current) use of anticoagulants; I87.2 Venous insufficiency (chronic) (peripheral); I48.91 Unspecified atrial fibrillation; E78.5 Hyperlipidemia, unspecified; I10 Essential (primary) hypertension
CPT/HCPCS: 11042; 15271; Q4101

== ENCOUNTER 2018-04-21 13:07 | Outpatient (RCR) | payer SELFPAY ==
[2018-04-15 01:12] VITALS: BP 143/64; PULSE 94; RESP 16; TEMP 36.6
[2018-04-21 14:16] VITALS: BP 135/76; PULSE 98; RESP 18; TEMP 36.9; BMI 33.2
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
== END 2018-05-15 23:59 ==
LOC: WC 13:07
PROVIDERS: PCP Family Medicine; Visit Provider Family Medicine
DX: S80.12XA Contusion of left lower leg, initial encounter (principal); W22.8XXA Striking against or struck by other objects, initial encounter; I87.2 Venous insufficiency (chronic) (peripheral); E11.9 Type 2 diabetes mellitus without complications; I48.91 Unspecified atrial fibrillation; Z79.01 Long term (current) use of anticoagulants
CPT/HCPCS: 99212; G0463